=== PATIENT | male | born 1950 | race Caucasian/White ===

== ENCOUNTER → 2024-02-21 07:11 | Outpatient (REF) | payer OTHER, SELFPAY | LOC: RSP 07:11 | PROVIDERS: ATTENDING PHYSICIAN Internal Medicine | DX: R06.02 Shortness of breath (principal) | CPT/HCPCS: 94727; 94729; 88738; 94060 ==

== ENCOUNTER 2024-02-26 15:11 | Inpatient (IN) | payer OTHER, SELFPAY ==
[2024-02-26 11:15] VITALS: BP 136/83
[2024-02-26 11:27] VITALS: BP 137/106
--- NOTE | 2024-02-26 11:42 | ED.GENMED ---
History of Present Illness
<Paty Pryor PA-C - Last Filed: 02/26/24 16:54>
General
Chief Complaint: Heart Rate Problem
Source: patient
Exam Limitations: none
Time Seen by Provider: 02/26/24 11:24
Nursing documentation reviewed up to this point in time: agreed with
Travel History
Have you had any contact with someone who has COVID-19?: No
Do you have any symptoms of coronavirus? Fever > 100 degrees, chills, cough, shortness of breath, sore throat, loss of taste or smell, muscle aches, or headache?: No
History of Present Illness
History of Present Illness:
Patient is a 73-year-old male with history of atrial fibrillation on Eliquis, hypertension, hyperlipidemia presenting to the emergency department for evaluation of shortness of breath and rapid heart rate. Patient states that he checked his vitals
on a monitoring analyst yesterday and was found to be in atrial fibrillation with a rapid heart rate. 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 At
this time�patient reporting shortness of breath with exertion and some mild epigastric abdominal discomfort. He denies any chest pain or tearing back pain. He denies any pain or swelling in bilateral lower legs.
Patient was seen in our emergency department in 05/13 and found to be in atrial fibrillation RVR. He was cardioverted and returned to normal sinus rhythm.
Patient currently takes metoprolol 25 Mg twice daily, Eliquis 2.5 Mg twice daily. He does take furosemide 20 mg once daily.
Patient states that he is generally pretty compliant with medications but does fear that he missed 1 dose of his Eliquis about 2 days ago. Patient follows Dr. Humphrey as his primary group exercise class instructor.
Past History
<Paty Pryor PA-C - Last Filed: 02/26/24 16:54>
Past History
ED Past Medical History: HTN, Hypercholesterolemia and Other (Factor XI deficiency, right knee prosthesis infection, meningioma)
ED Past Surgical History: Brain, Orthopedic and Urological
Social History
Tobacco: Non-smoker
Alcohol: None
Drug: None
Personal:
Living: with family
Employment: Employed
Family History
Family History: Diabetes
Phy Exam
<Paty Pryor PA-C - Last Filed: 02/26/24 16:54>
Physical Exam
Physical Exam:
Vitals: Tachycardic, otherwise vital signs stable; afebrile
General: Patient is well appearing, no acute distress
Skin: Warm and dry, no rashes or lesions
Head: Normocephalic, atraumatic
Eyes: Sclera nonicteric. EOMs intact. No nystagmus.
Cardiac: Tachycardic, irregular rhythm, no murmurs.
Pulm: Increased respiratory effort, breath sounds slightly diminished at bases, no wheezing, rales, rhonchi.
Abdomen: No abdominal tenderness to palpation, no rebound tenderness or guarding, no CVA tenderness.
Extremities: No evidence of cyanosis or edema, DP pulses palpable bilaterally
Neuro: AAOx3. CN II-XII intact. No focal neurologic deficits.
Psychiatric: Normal affect.
Course
<Paty Pryor PA-C - Last Filed: 02/26/24 16:54>
Orders/Labs/Results
Orders:
Orders
02/26/24 Lunch
Sodium, 2 Gram
At Your Request: Full Participation
Does patient need a safe tray?: No
02/26/24 11:07
ECG [Electrocardiogram (*1)] Urgent
Reason for Study: Chest Pain
EKG- Treatment ONCE
02/26/24 11:47
Cardiac Monitoring- Treatment ONCE
IV Insert/Care/Rem.- Treatment PRN
02/26/24 11:49
Complete Blood Count/With Diff Urgent
Comprehensive Metabolic Panel Urgent
NT-proBNP Urgent
Comment: ADDED
Troponin I Urgent
02/26/24 11:54
Add On- LAB Urgent
Tests Added?: pro-BNP
Diltiazem HCl [Cardizem] 20 mg IV NOW STA
02/26/24 11:57
Diltiazem HCl [Cardizem] 25 mg .ROUTE .STK-MED ONE
02/26/24 12:02
PTT Urgent
Prothrombin Time Urgent
02/26/24 13:55
Diltiazem 125 mg/125 ml Nss [Cardizem] 125 mg in 125 ml IV NOW
Initial dose in mg/hr, then titrate:: 5
Titrate to keep:: Heart rate 80-100 bpm
Titrate by mg/hr:: 5 mg/hr
Frequency of titrations (minutes):: 15
Maximum dose in mg/hr:: 15
Diltiazem HCl [Cardizem] 20 mg IV NOW STA
02/26/24 14:41
CXR2 [CR Chest - 2 Views ] Urgent
Comment:
Reason For Exam: SOB/CHF
02/26/24 14:46
Admit/Transfer Patient As Directed
Co-Sign Provider:
Level of Care: Inpatient admission
Assign to:: IVU
Physician / Group: Herminia
Diagnosis: AFIB with RVR
Reason for Hospitalization: Above
Expected length of stay greater than two midnights?: Yes
ELOS- Estimated Length of Stay in days: 2
I certify the patient meets the requirements for IP care: Yes
02/26/24 14:48
Code Status As Directed
Resuscitation Status: Full Code
02/26/24 14:56
Ibuprofen [Motrin] 400 mg PO NOW STA
02/26/24 14:58
Ibuprofen [Motrin] 400 mg .ROUTE .STK-MED ONE
02/26/24 14:59
Ibuprofen [Motrin] 400 mg PO NOW STA
Abnormal Lab Results
02/26/24 02/26/24
11:49 12:02
RBC 4.46 L 10^6/uL
(4.70-6.10)
Hct 38.2 L %
(39.0-52.0)
Absolute Lymphs (auto) 1.0 L 10^3/uL
(1.2-3.4)
Absolute Monos (auto) 0.7 H 10^3/uL
(0.1-0.6)
Lymphocytes % 14.5 L %
(20.5-51.1)
Monocytes % 10.1 H %
(1.7-9.3)
PT 15.0 H Sec
(11.4-14.6)
APTT 66.9 H Sec
(23.4-35.0)
BUN 35 H mg/dl
(9-20)
Creatinine 1.4 H mg/dL
(0.7-1.3)
Glucose 138 H mg/dl
(70-99)
Alkaline Phosphatase 140 H U/L
(38-126)
Troponin I 0.120 H* ng/ml
02/26/24 11:49
02/26/24 11:49
Vital Signs
Initial and Last Documented VS:
Initial Vital Signs
Temp Pulse Resp BP Pulse Ox
98.1 F 155 23 136/83 97
02/26/24 11:15 02/26/24 11:15 02/26/24 11:15 02/26/24 11:15 02/26/24 11:15
Last Documented Vital Signs
Temp Pulse Resp BP Pulse Ox
98.1 F 122 20 112/81 96
02/26/24 11:15 02/26/24 16:30 02/26/24 16:30 02/26/24 14:03 02/26/24 13:00
<Pedro Levine, DO - Last Filed: 02/26/24 12:17>
Orders/Labs/Results
Orders:
Orders
02/26/24 Lunch
Sodium, 2 Gram
At Your Request: Full Participation
Does patient need a safe tray?: No
02/26/24 11:07
ECG [Electrocardiogram (*1)] Urgent
Reason for Study: Chest Pain
EKG- Treatment ONCE
02/26/24 11:47
Cardiac Monitoring- Treatment ONCE
IV Insert/Care/Rem.- Treatment PRN
02/26/24 11:49
Complete Blood Count/With Diff Urgent
Comprehensive Metabolic Panel Urgent
NT-proBNP Urgent
Comment: ADDED
Troponin I Urgent
02/26/24 11:54
Add On- LAB Urgent
Tests Added?: pro-BNP
Diltiazem HCl [Cardizem] 20 mg IV NOW STA
02/26/24 11:57
Diltiazem HCl [Cardizem] 25 mg .ROUTE .STK-MED ONE
02/26/24 12:02
PTT Urgent
Prothrombin Time Urgent
02/26/24 13:55
Diltiazem 125 mg/125 ml Nss [Cardizem] 125 mg in 125 ml IV NOW
Initial dose in mg/hr, then titrate:: 5
Titrate to keep:: Heart rate 80-100 bpm
Titrate by mg/hr:: 5 mg/hr
Frequency of titrations (minutes):: 15
Maximum dose in mg/hr:: 15
Diltiazem HCl [Cardizem] 20 mg IV NOW STA
02/26/24 14:41
CXR2 [CR Chest - 2 Views ] Urgent
Comment:
Reason For Exam: SOB/CHF
02/26/24 14:46
Admit/Transfer Patient As Directed
Co-Sign Provider:
Level of Care: Inpatient admission
Assign to:: IVU
Physician / Group: Herminia
Diagnosis: AFIB with RVR
Reason for Hospitalization: Above
Expected length of stay greater than two midnights?: Yes
ELOS- Estimated Length of Stay in days: 2
I certify the patient meets the requirements for IP care: Yes
02/26/24 14:48
Code Status As Directed
Resuscitation Status: Full Code
02/26/24 14:56
Ibuprofen [Motrin] 400 mg PO NOW STA
02/26/24 14:58
Ibuprofen [Motrin] 400 mg .ROUTE .STK-MED ONE
02/26/24 14:59
Ibuprofen [Motrin] 400 mg PO NOW STA
Abnormal Lab Results
02/26/24 02/26/24
11:49 12:02
RBC 4.46 L 10^6/uL
(4.70-6.10)
Hct 38.2 L %
(39.0-52.0)
Absolute Lymphs (auto) 1.0 L 10^3/uL
(1.2-3.4)
Absolute Monos (auto) 0.7 H 10^3/uL
(0.1-0.6)
Lymphocytes % 14.5 L %
(20.5-51.1)
Monocytes % 10.1 H %
(1.7-9.3)
PT 15.0 H Sec
(11.4-14.6)
APTT 66.9 H Sec
(23.4-35.0)
BUN 35 H mg/dl
(9-20)
Creatinine 1.4 H mg/dL
(0.7-1.3)
Glucose 138 H mg/dl
(70-99)
Alkaline Phosphatase 140 H U/L
(38-126)
Troponin I 0.120 H* ng/ml
02/26/24 11:49
02/26/24 11:49
Vital Signs
Initial and Last Documented VS:
Initial Vital Signs
Temp Pulse Resp BP Pulse Ox
98.1 F 155 23 136/83 97
02/26/24 11:15 02/26/24 11:15 02/26/24 11:15 02/26/24 11:15 02/26/24 11:15
Last Documented Vital Signs
Temp Pulse Resp BP Pulse Ox
98.1 F 122 20 112/81 96
02/26/24 11:15 02/26/24 16:30 02/26/24 16:30 02/26/24 14:03 02/26/24 13:00
<Paty Pryor PA-C - Last Filed: 02/26/24 16:54>
MDM/Problems Addressed
Differential Diagnosis Includes:
Not limited to: Atrial fibrillation, CHF exacerbation, anemia, doubt ACS
MDM/Problems Addressed:
73-year-old male with history atrial fibrillation mild presenting to the emergency department for shortness of breath and associated tachycardia. Patient found to be in atrial fibrillation w/ RVR in triage. Heart rate in 150s, otherwise vital
signs are stable. Exam as above. Tachycardia, irregular heart rate. Lungs clear. No clinical evidence of fluid overload on exam. Patient reports possible missed dose of Eliquis 2 days ago. Discussed with cardiology�not a cardioversion
candidate at this time. Will check basic labs. Will give bolus of Cardizem in an attempt to rate control. Will monitor closely and reassess.
Labs noted. Mild renal insufficiency likely due to dehydration. Troponin was elevated to 0.120. proBNP elevated to 9500. Suspect that both troponin and proBNP elevation is due to tachycardia for the past 24 hours. Cardizem bolus did briefly
reduce rate and improve symptomatic shortness of breath. Heart rate did return into 150s. Despite symptomatic improvement at given persistent tachycardia and elevated Troponin/BNP�will admit to hospitalist for further management/evaluation.
Cardiology consulted�possible MARBELLA cardioversion tomorrow. Will give second bolus Cardizem and start Cardizem drip. Discussed with hospitalist. Cardiology aware
Chronic conditions affecting care:
Atrial fibrillation, hypertension, high anemia, factor XI deficiency
Acute Exacerbation and/or Progression of Chronic Illness:
Atrial fibrillation with rapid ventricular response
<Paty Pryor PA-C - Last Filed: 02/26/24 16:54>
*Pulse Oximetry
Patient hypoxic: no
*EKG
Interpreted by ED Provider?: Yes
EKG Intrepretation Date: 02/26/24
Interpretation: abnormal
Comparison EKG: changes noted
Heart Rate: 163
Rate: tachycardiac
Rhythm: a-fib
Saline: normal axis
Ischemia: no ischemia
*Tumbling And Rolling Supervisor Interpretation
Rate: tachycardiac
Interpretation: abnormal
Heart Rate: 144
Rhythm: a-fib
*Critical Care Note
Total Time (30-74mins, 75-104mins- exclusive of procedures): Not Applicable
Data Reviewed
Review of Other/Old Records Reveals: Labs, Records and Testing
Source: patient and previous hospital records
<Paty Pryor PA-C - Last Filed: 02/26/24 16:54>
Patient Management
Discussion with other providers: Hospitalist and Typist (Cardiology)
Escalation/DeEscalation of care consider admission/obs:
Persistent tachycardia, not cardioversion candidate�will admit for further management and cardiology consult
ED Attending Note
<Paty Pryor PA-C - Last Filed: 02/26/24 16:54>
-
Portions of this chart may have been created with voice recognition software.� Occasional wrong word or��sound alike� substitutions may have occurred due to the inherent limitations of voice recognition software.
<Pedro Levine DO - Last Filed: 02/26/24 12:17>
ED Attending Note
Patient seen and examined by attending physician: Yes
I performed the substantive portion of visit, reviewed & personally made and approve the management plan that is documented in note by myself or YUNIOR.: Yes
ED Attending Note:
I have seen and evaluated the patient with a [id number] encounter. I have spoken to the advance practicer provider and involved in the medical history, the physical exam, medical decision making.
Evaluation and management service: agree unless noted differently below.
Results interpretation: agree unless noted differently below.
Focused HPI: 73-year-old male presenting with palpitations. Patient believes he is back in A-fib
Physical exam: Tachycardic and irregular. Lungs clear. Patient otherwise comfortable
Medical Decision Making: Patient feeling better after IV Cardizem. He is now rate controlled. Case discussed with cardiology. Patient has been cardioverted in the past but patient is concerned he may missed a dose or 2 of Eliquis recently.
Because of this, he is no longer a bedside cardioversion candidate. Patient is feeling better rate controlled and will consider discharge home if he remains rate controlled. If patient goes back into A-fib with RVR, will admit
Discharge Plan
Departure
Patient Disposition: Admit
Date of Disposition: 02/26/24
Time of Disposition: 13:51
Presentation/result/management discussed w/ accepting MD/DO: Hospitalist
Discharge Problem:
Atrial fibrillation with rapid ventricular response
Interventions
Interventions:
*Risk Screen - Suicide Last Done: 02/26/24 11:15
*General Assessment Last Done: 02/26/24 11:15
*Neglect/Abuse Screening Last Done: 02/26/24 11:15
ED- Fall Risk Assessment Last Done: 02/26/24 15:06
*ED COVID-19 Vaccine History Last Done: 02/26/24 15:06
*Nursing Disposition Last Done: 02/26/24 15:06
ED- Cardiac Assessment Last Done: 02/26/24 11:28
ED- Pulmonary Assessment Last Done: 02/26/24 11:29
[2024-02-26 11:55] LABS: % Basophils 0.6 % (0-2); % Eosinophils 5.1 % (0-6); % Immature Granulocytes 0.4 % (0-0.5); % Lymphocytes 14.5 % (20.5-51.1); % Monocytes 10.1 % (1.7-9.3); % Neutrophils 69.3 % (42.2-75.2); Absolute Eosinophils 0.4 10^3/uL (0-0.7); Absolute Monocytes 0.7 10^3/uL (0.1-0.6); Absolute Neutrophils 4.7 10^3/uL (1.4-6.5); Hematocrit 38.2 % (39.0-52.0); Hemoglobin 13.2 g/dL (13.0-18.0); Mean Corp Hgb Conc. 34.6 g/dL (33.0-37.0); Mean Corpuscular Hgb 29.6 pg (27.0-31.0); Mean Corpuscular Volume 85.7 fL (80.0-94.0); Mean Platelet Volume 9.9 fL (7.4-10.4); Nucleated Red Blood Cells % 0 % (-); Platelet Count 278 10^3/uL (130-400); Red Blood Cell Count 4.46 10^6/uL (4.70-6.10); Red Cell Dist. Width 13.3 % (11.5-14.5); White Blood Cell Count 6.8 10^3/uL (4.8-10.8)
[2024-02-26] MEDS: CARDIZEM 20 MG IV ×2 (11:58→14:00)
[2024-02-26 12:23] LABS: ALT (SGPT) 35 U/L (0-50); AST (SGOT) 50 U/L (17-59); Albumin 4.3 g/dl (3.5-5.0); Alkaline Phosphatase 140 U/L (38-126); Blood Urea Nitrogen 35 mg/dl (9-20); Carbon Dioxide 25 mmol/L (22-30); Chloride 102 mmol/L (98-107); Glucose 138 mg/dl (70-99); Potassium 4.6 mmol/L (3.5-5.1); Sodium 137 mmol/L (135-145); Total Bilirubin 0.7 mg/dl (0.2-1.3); Total Protein 7.3 g/dl (6.3-8.2); eGFR 52.41
[2024-02-26 12:27] LABS: APTT 66.9 Sec (23.4-35.0)
[2024-02-26 12:41] LABS: NT-proBNP 9500 pg/ml
[2024-02-26] MEDS: CARDIZEM 125 IV (14:00)
[2024-02-26 14:03] VITALS: BP 112/81
--- NOTE | 2024-02-26 14:53 | HPS.HSE ---
Family Physician
-
Family Physician: Jasbir Narvaez
Chief Complaint
-
Shortness of breath and palpitations
History of Present Illness
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 Patient states that he feels short of
breath with palpitations for over the last 24 hours. He states that he has been compliant to his home medication regimen including metoprolol, Lasix, Eliquis. He could recall possibility of missing 1 dose of Eliquis they go. While emergency room
patient was found to be in atrial fibrillation with rapid trickle response initiated on IV Cardizem with bolus following drip. He remains normotensive with stable oxygen saturations. He denies any chest pain, cough, fever.
Medical History
Past Medical History
Past Medical History: Reports Arrhythmia (A-fib with history of cardioversion) and CHF
Past Surgical History: Reports Orthopedic
Social History
Tobacco: Non-smoker
Alcohol: None
Drug: None
Personal:
Living: With Family
Family History
Family History: Not pertinent
Allergies / Home Medications
Allergies reflects when Allergies were last updated in [employer].
Home Medications with original date entered in [employer]
Allergy/Medication List:
Allergies
Allergy/AdvReac Type Severity Reaction Status Date / Time
ertapenem sodium Allergy seizure [facility] 02/26/24 11:15
[facility]
seasonal allergies Allergy sneezing Uncoded 02/26/24 11:15
Home Medications
cefadroxil 500 mg capsule 500 mg PO DAILY channel turner-Infection 04/11/16
saw palmetto 160 mg capsule 585 mg PO DAILY Supplement 04/11/16
omeprazole magnesium 20 mg tablet,delayed release (Prilosec OTC) 20 mg PO DAILY Gastrointestinal issue 10/13/21
turmeric 400 mg capsule 538 mg PO DAILY Supplement 10/13/21
apixaban 2.5 mg tablet (Eliquis) 2.5 mg PO BID #60 tabs 10/26/21
furosemide 40 mg tablet 40 mg PO DAILY #30 tabs 10/26/21
ibuprofen 200 mg tablet (Advil) 400 mg PO DAILY PRN orthopedic pain 11/15/21
metoprolol succinate 25 mg tablet,extended release 24 hr 25 mg PO BID 11/15/21
red yeast rice 600 mg tablet 600 mg PO QPM 02/26/24
Review of Systems
-
A 12 point ROS was completed and negative except as noted: Yes
Cardiac: Reports See HPI
Physical Exam
Vital Signs
Vital Signs
Temp Pulse Resp BP Pulse Ox
98.1 F 91 21 112/81 96
02/26/24 11:15 02/26/24 14:45 02/26/24 14:45 02/26/24 14:03 02/26/24 13:00
Physical Exam
General: Well Developed, Well Nourished and No Apparent Distress
HEENT: NormoCephalic, Moist mucous membranes and Atraumatic
Respiratory: Clear
Cardiac: S1/S2, Irregular Rhythm and Tachycardia; No Murmur or Rub
GI: Soft, Non Tender, Non Distended and Normal Bowel Sounds; No Organomegaly
Rectal: Deferred by Provider
Musculoskeletal: No Clubbing, No Cyanosis and No Edema
Skin: No Rash
Neuro: Awake, Alert, Oriented, AO x 3 and Nonfocal/grossly intact
Laboratory Results
-
02/26/24 11:49
02/26/24 11:49
Laboratory Results
PT 15.0 Sec (11.4-14.6) H 02/26/24 12:02
INR 1.20 02/26/24 12:02
APTT 66.9 Sec (23.4-35.0) H 02/26/24 12:02
Total Bilirubin 0.7 mg/dl (0.2-1.3) 02/26/24 11:49
AST 50 U/L (17-59) 02/26/24 11:49
ALT 35 U/L (0-50) 02/26/24 11:49
Alkaline Phosphatase 140 U/L (38-126) H 02/26/24 11:49
Troponin I 0.120 ng/ml H* 02/26/24 11:49
Data Reviewed
-
Lab Data: Labs Reviewed by me
Impression/Plan
-
IMPRESSION:
Atrial fibrillation with rapid ventricular response.
Suspected acute diastolic CHF in the settings of RVR
Non-VT troponin elevation
KENDELL.
Conditions prior to admission:
Persistent atrial fibrillation with history of cardioversion
Anticoagulation with Eliquis.
Nonischemic cardiomyopathy with recovered EF 45-50%
Valvular dysfunction with mild to moderate /AR/mild MR.
Factor XI deficiency
History of brain meningioma resection 2000
Essential hypertension
Dyslipidemia
GERD
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
History of nephrolithiasis and ureteral stenting
PLAN:
Persistent A-fib with RVR.
Hemodynamically stable.
Initiated IV Cardizem drip
Continue preadmission metoprolol
May require MARBELLA cardioversion
Continue anticoagulation with Eliquis. Patient with history of factor XI deficiency on reduced dose of Eliquis at 2.5 mg twice daily as per hematology recommendation.
Nonischemic cardiomyopathy with recovered EF
Noted elevated pro CHF BNP
Not overly volume overloaded on exam with stable oxygenation
Check chest x-ray
Consider additional dose of IV Lasix while continuing preadmission oral Lasix at 40 mg daily.
Daily weights
Non-VT troponin elevation, suspect in the settings of RVR. Monitor trend.
KENDELL.
Creatinine 1.4 with normal baseline
Will follow BMP while on current dose of diuretics.
Avoid nephrotoxins. Stop ibuprofen
GERD.
Continue PPI.
Chronic antibiotic suppression for right TKA infection
[2024-02-26] MEDS: MOTRIN 400 MG PO (14:59)
--- NOTE | 2024-02-26 16:26 | CON.CAR ---
Consultation
Consultation Request
Date/Time Consultation Requested: 02/26/2024 1430
Date/Time Consultation Performed: 02/26/2024 1445
Requesting Provider: Jensen Hope MD
Performing Provider: Vargas Mejia DO
Reason for Consultation: AF RVR
Medical History
-
Chief Complaint: AF, SOB
History of Present Illness:
It is a pleasure to see Mr. Daniels in consultation today. As you are aware, patient is a very pleasant 73-year-old male with a past medical history significant for factor XI deficiency, brain meningioma status postresection, seizure disorder,
kidney stones, hypertension, hyperlipidemia, paroxysmal atrial fibrillation (diagnosed 09/2021), mild aortic stenosis, heart failure with preserved ejection fraction who presents following a call to the office due to AF RVR. Initial diagnosis of
atrial fibrillation occurred following ureteroscopy and stone extraction September 2021 and at the time patient was started on metoprolol and aspirin due to his factor XI deficiency. Patient subsequently readmitted in October 2021 with elevated BNP
and shortness of breath with chest x-ray showing pulmonary edema. At that time, patient was started on Eliquis 2.5 mg twice daily at recommendation from hematology for stroke risk reduction in the setting of A-fib. He underwent Lexiscan nuclear
stress testing which demonstrated no evidence of ischemia. At the end of October, he underwent MARBELLA cardioversion with yazidism of sinus rhythm. Patient had remained out of atrial fibrillation until April 2023 and was noted to be in AF on his
[employer] mobile. Patient increase his metoprolol and underwent cardioversion in the emergency department. Since that time, he reports brief episodes of paroxysmal A-fib but nothing that sustains. Overall he reports adherence to his oral
anticoagulation however in the last couple weeks he cannot recall if he missed 1 or 2 doses of his oral anticoagulation. He notes on Sunday experienced episode of shortness of breath and palpitations as well as poor sleep which he attributes to his
atrial fibrillation symptoms. In evaluation by his [employer] mobile he noted that his heart rate was elevated greater than 150 bpm. He reported that he was hoping to allow the symptoms to pass on their own as they typically do however they did not
change therefore he called the office recommended that he present to the emergency department for evaluation. In discussion with patient, he is currently on a Cardizem drip with improved rates 90 to 110 bpm. He reports that in addition to the
palpitations, shortness of breath, and fatigue he noted abdominal discomfort as his typical symptom for atrial fibrillation. He notes that since his rates are controlled, he no longer feels any of the symptoms. Patient currently denies any chest
pain, shortness of breath, lightheadedness, dizziness, near-syncope, syncope, PND, orthopnea, edema, fever, chills, nausea, vomiting, abdominal pain, or weakness. Patient reports parents all medications aside from most recently mentioned Eliquis as
he notes he possibly missed 1 or 2 doses over the past few weeks. Patient non-smoker, no alcohol, no illicits. Patient reports that he is active doing weight lifting and aerobic exercise near daily.
Past Medical History
Past Medical History: Other (See HPI)
Past Surgical History: Other (See HPI)
Social History
Tobacco: Non-Smoker
Alcohol: None
Drug: None
Personal:
Living: With Family
Employment: Retired
Family History
Family History: Reviewed & Not Pertinent
Allergies / Home Medications
Allergy/AdvReac Type Severity Reaction Status Date / Time
ertapenem sodium Allergy seizure Verified 02/26/24 11:15
[From Invanz]
seasonal allergies Allergy sneezing Uncoded 02/26/24 11:15
�Medication �Instructions �Recorded �Confirmed �Type
cefadroxil 500 mg capsule 500 mg PO DAILY manager terminal-Infection 04/11/16 02/26/24 History
saw palmetto 160 mg capsule 585 mg PO DAILY Supplement 04/11/16 02/26/24 History
omeprazole magnesium 20 mg 20 mg PO DAILY Gastrointestinal 10/13/21 02/26/24 History
tablet,delayed release (Prilosec issue
OTC)
turmeric 400 mg capsule 538 mg PO DAILY Supplement 10/13/21 02/26/24 History
ibuprofen 200 mg tablet (Advil) 400 mg PO DAILY PRN orthopedic pain 11/15/21 02/26/24 History
metoprolol succinate 25 mg 25 mg PO BID Blood Pressure 11/15/21 02/26/24 History
tablet,extended release 24 hr
apixaban 2.5 mg tablet (Eliquis) 2.5 mg PO BID Blood Clot 02/26/24 02/26/24 History
Prevention/Tx
furosemide 40 mg tablet 40 mg PO DAILY Fluid 02/26/24 02/26/24 History
Retention/Swelling
red yeast rice 600 mg tablet 600 mg PO QPM Supplement 02/26/24 02/26/24 History
Review of Systems
-
History Source: Patient and Family
All other systems: Negative unless noted (See HPI)
Physical Exam
Vital Signs
Temp Pulse Resp BP Pulse Ox
98.1 F 87 25 112/81 96
02/26/24 11:15 02/26/24 15:30 02/26/24 15:30 02/26/24 14:03 02/26/24 13:00
Lab Results
02/26/24 11:49
02/26/24 11:49
Troponin I 0.120 ng/ml H* 02/26/24 11:49
Aab-N-Oxxmazcmleg Pept 9500 pg/ml 02/26/24 11:49
Physical Exam
General: Well Developed, Well Nourished, No Apparent Distress and Comfortable
HEENT: Normocephalic, Anicteric and Moist Mucous Membranes
Respiratory: Clear, Non Labored Respirations and Other (No wheeze, rhonchi, rales)
Cardiac: S1/S2, Irregular Rhythm, Murmur (2/6 CAM) and JVD (Unable to appreciate JVD)
Breast: Deferred by me
GI: Soft, Non Tender, Non Distended and Normal Bowel Sounds
Rectal: Deferred by Provider
Musculoskeletal: No Clubbing, No Cyanosis and No Edema
Skin: Warm and Dry
Neuro: AO x 3 and Nonfocal/Grossly Intact
Psych: Calm
Impression / Plan
-
Primary debridging machine operator: Gerardo Davis MD
PCP: Jasbir Narvaez MD
Rn Mds Coordinator: Abundio Prieto DO
.
AF RVR, paroxysmal, symptomatic, improved
� [id number]: 4 (age, hypertension, heart failure). On Eliquis 2.5 mg twice daily for stroke risk reduction, as recommendation by hematology
� On metoprolol succinate 25 mg twice daily as outpatient, currently rate controlled with diltiazem gtt
Acute on chronic heart failure with preserved ejection fraction
� BNP 9500
� CXR pending
� History of nonischemic cardiomyopathy with EF 45% improved to 55%
� No overt overload on examination
Nonischemic myocardial injury
� Lexiscan MPI 2021 negative for ischemia
� TTE 2022 EF 55%
Mixed dyslipidemia
Mild aortic stenosis
Mild to moderate AI
Hypertension
Factor XI deficiency, followed by hematology/oncology
Seizure disorder
History of brain meningioma status post resection 2000
History of nephrolithiasis
Recommendations:
� N.p.o. after midnight pending MARBELLA/DCCV for yazidism of sinus rhythm
� 40 mg IV Lasix x 1, repeat BMP in a.m., monitor renal function, electrolytes, intake, outputs
� Recommend strongly against use of ibuprofen/NSAIDs
� Continue oral anticoagulation for stroke risk reduction; recommend reaching out to hematology oncology for possible adjustment of oral anticoagulation
Data Reviewed
-
EKG: Tracing Personally Visualized and interpreted
Medical Tests (Nuc Med, Echo etc): Report Reviewed by me
Labs: Labs Reviewed by me
Old Records: Reviewed
[2024-02-26 16:30] VITALS: BP 143/84
[2024-02-26 16:55] VITALS: BMI 32.6
[2024-02-26] MEDS: TOPROL XL 25 MG PO (19:10)
[2024-02-26] MEDS: KEFLEX 250 MG PO (19:11)
[2024-02-26] MEDS: ELIQUIS 2.5 MG PO (19:11)
[2024-02-26] MEDS: LASIX 40 MG IV (19:42)
[2024-02-26 22:10] VITALS: BP 165/101
[2024-02-27] VITALS (7 sets, daily range): BP systolic 103–172; BP diastolic 75–123; BMI 32.6; BMI 31.3
[2024-02-27] MEDS: TOPROL XL 25 MG PO (08:33)
[2024-02-27] MEDS: PROTONIX 40 MG PO (08:36)
[2024-02-27] MEDS: ELIQUIS 2.5 MG PO ×2 (08:36→09:50)
[2024-02-27] MEDS: KEFLEX 250 MG PO (08:48)
[2024-02-27 09:29] LABS: Blood Urea Nitrogen 40 mg/dl (9-20); Calcium 9.8 mg/dl (8.4-10.2); Carbon Dioxide 27 mmol/L (22-30); Chloride 102 mmol/L (98-107); Estimated Creatinine Clearance 56 ml/min; Glucose 131 mg/dl (70-99); Potassium 4.4 mmol/L (3.5-5.1); Sodium 137 mmol/L (135-145); eGFR 52.41
[2024-02-27 09:39] LABS: Troponin I 0.075 ng/ml
[2024-02-27] MEDS: CARDIZEM 125 IV (09:40)
--- NOTE | 2024-02-27 11:26 | ITS.CL.CARDI ---
Validation Intern - Cardioversion
Cardioversion
Procedure Report:
Date of Procedure:
Procedure: Cardioversion
Indication: Symptomatic atrial fibrillation
Performing Physician: Mark Cavazos MD
Technique: The patient was brought to the holding area. Signed informed consent was obtained. A time out was called and performed. The patient was anesthetized by the anesthesia service. Anticoagulation status was reviewed and appropriate. R2 pads
were placed anteriorly and posteriorly. After MARBELLA revealed no clear thrombus, a 200 J synchronized biphasic shock restored normal sinus rhythm without significant bradycardia. There were no complications.
Conclusion: Uncomplicated cardioversion from atrial fibrillation to sinus rhythm.
Recommendation: Routine post cardioversion care. Continue terminal make up operator anticoagulation.
--- NOTE | 2024-02-27 11:58 | W.PN.CARDCBS ---
Today's Communication / Plan
-
MARBELLA cardioversion
Increase Eliquis to 5 mg p.o. twice daily for cardioprotective stroke prevention as patient has never had bleeding events despite diagnosis of factor XI deficiency
No signs or symptoms of CHF and will discharge on normal outpatient dose of Lasix 40 mg daily and check renal profile in 1 week
Follow-up in office to discuss ablation with high risk of recurrent A-fib
Impression / Plan
-
Primary ornamental metalwork designer: Gerardo Davis MD
PCP: Jasbir Narvaez MD
Administrative Court Justice: Abundio Prieto DO
Assessment:
AF RVR, paroxysmal
Acute diastolic CHF
Nonischemic myocardial injury, peak troponin 1.2
Mixed dyslipidemia
Mild aortic stenosis
Mild to moderate AI
Hypertension
Factor XI deficiency, followed by hematology/oncology
Seizure disorder
History of brain meningioma status post resection 2000
History of nephrolithiasis
� Lexiscan MPI 2021 negative for ischemia
� TTE 2022 EF 55%
Plan:
He remains in rate controlled atrial fibrillation.
Discussed with hematology and plan is to increase Eliquis to 5 mg p.o. twice daily given increased risk of stroke status post cardioversion
Patient declines ever having had bleeding events in the past
[id number]: 4 (age, hypertension, heart failure).
Plan is for MARBELLA/cardioversion
He will be seen by EP as an outpatient discuss ablation as he is high risk for recurrent atrial fibrillation
There may have been a mild element of volume overload
We will continue outpatient oral Lasix 40 mg dosing and check BMP in 1 week
Discussed with primary service and patient in detail
Recommendations:
� N.p.o. after midnight pending MARBELLA/DCCV for episcopal of sinus rhythm
� 40 mg IV Lasix x 1, repeat BMP in a.m., monitor renal function, electrolytes, intake, outputs
� Recommend strongly against use of ibuprofen/NSAIDs
� Continue oral anticoagulation for stroke risk reduction; recommend reaching out to hematology oncology for possible adjustment of oral anticoagulation
Progress Note - Seed Potato Arranger
Subjective
Date of Service: February 27, 2024
No complaints. Remains in atrial fibrillation.
Objective
Labs:
02/26/24 11:49
02/27/24 09:04
Labs
Hgb 13.2 g/dL (13.0-18.0) 02/26/24 11:49
Hct 38.2 % (39.0-52.0) L 02/26/24 11:49
Plt Count 278 10^3/uL (130-400) 02/26/24 11:49
PT 15.0 Sec (11.4-14.6) H 02/26/24 12:02
INR 1.20 02/26/24 12:02
APTT 66.9 Sec (23.4-35.0) H 02/26/24 12:02
Sodium 137 mmol/L (135-145) 02/27/24 09:04
Potassium 4.4 mmol/L (3.5-5.1) 02/27/24 09:04
BUN 40 mg/dl (9-20) H 02/27/24 09:04
Creatinine 1.4 mg/dL (0.7-1.3) H 02/27/24 09:04
Glucose 131 mg/dl (70-99) H 02/27/24 09:04
Troponins
02/26/24 02/27/24
11:49 09:05
Troponin I 0.120 H* 0.075 H*
Vital Signs and I&O:
Vital Signs
Temp Pulse Resp BP Pulse Ox
98.1 F 109 16 131/95 96
02/26/24 11:15 02/27/24 08:33 02/27/24 07:45 02/27/24 08:33 02/26/24 13:00
Vital Signs
Temp Pulse Resp BP Pulse Ox
98.1 F 109 16 131/95 96
05/07/24 11:15 02/27/24 08:33 02/27/24 07:45 02/27/24 08:33 02/26/24 13:00
Physical Exam
Physical Exam
General: Well developed, well nourished in NAD.
Neck: Supple, no JVD, HJR, carotids +2 B/L, no bruits bilaterally.
Heart: Non displaced PMI, irregular, no murmurs, No S3, S4, no rubs.
Lungs: Scattered rhonchi
Extremities: No clubbing, cyanosis or edema bilaterally.
Neuro: Grossly nonfocal, awake, alert and oriented x3.
--- NOTE | 2024-02-27 12:40 | PTCARENOTE ---
02/26- Patient transferred and oriented to unit without issue. AAOX3; Skin=warm/pink/dry/intact; Telemetry #25 currently NSR. Patient is hungry and wants to eat but aside from that, denies any current needs.
--- NOTE | 2024-02-27 13:35 | W.DS.TRANS ---
DC Summary - Senior Mechanical Project Manager
-
Discharge Instructions:
Sleep Apnea Risk High
Discharge Diagnosis/Procedures Atrial fibrillation with RVR
Diet 2 Gram Sodium
Blood Work -Check non-fasting blood work in 1 week to re-
evaluate kidney function and electrolytes.
Specialty Instructions Weigh Daily
Instructions:
Stand-Alone Forms:
Changes to Home Medications: Yes
Discharge Medications:
DC Medications w/original date entered in [facility]
cefadroxil 500 mg capsule 500 mg PO DAILY terminal make up operator-Infection 04/11/16
saw palmetto 160 mg capsule 585 mg PO DAILY Supplement 04/11/16
omeprazole magnesium 20 mg tablet,delayed release (Prilosec OTC) 20 mg PO DAILY Gastrointestinal issue 10/13/21
turmeric 400 mg capsule 538 mg PO DAILY Supplement 10/13/21
metoprolol succinate 25 mg tablet,extended release 24 hr 25 mg PO BID Blood Pressure 11/15/21
furosemide 40 mg tablet 40 mg PO DAILY Fluid Retention/Swelling 02/26/24
red yeast rice 600 mg tablet 600 mg PO QPM Supplement 02/26/24
apixaban 5 mg tablet (Eliquis) 5 mg PO BID #60 tabs 02/27/24
Home Medication Changes
Eliquis dose increased
Pending Results: No
== END 2024-02-27 14:10 | disposition home or self-care (01) | DRG 308 ==
LOC: 4 WEST ACU 15:11
PROVIDERS: Internal Medicine Cardiovascular Disease; Physician Assistant; Physician Assistant Medical; ADMITTING PHYSICIAN Internal Medicine; EMERGENCY PHYSICIAN Student in an Organized Health Care Education/Training Program; FAMILY PHYSICIAN Internal Medicine; OTHER PHYSICIAN Internal Medicine Cardiovascular Disease
PROC: B24BZZ4 Ultrasonography of Heart with Aorta, Transesophageal (ICD-10-PCS; 2024-02-27)
PROC: 5A2204Z Restoration of Cardiac Rhythm, Single (ICD-10-PCS; 2024-02-27)
DX: I48.19 Other persistent atrial fibrillation (principal); I50.33 Acute on chronic diastolic (congestive) heart failure; D68.1 Hereditary factor XI deficiency; N17.9 Acute kidney failure, unspecified; I5A Non-ischemic myocardial injury (non-traumatic); E78.00 Pure hypercholesterolemia, unspecified; I11.0 Hypertensive heart disease with heart failure; E78.2 Mixed hyperlipidemia; I08.0 Rheumatic disorders of both mitral and aortic valves; I42.8 Other cardiomyopathies; K21.9 Gastro-esophageal reflux disease without esophagitis; G40.909 Epilepsy, unspecified, not intractable, without status epilepticus; D32.0 Benign neoplasm of cerebral meninges; J30.2 Other seasonal allergic rhinitis; Z96.651 Presence of right artificial knee joint; Z83.3 Family history of diabetes mellitus; Z79.01 Long term (current) use of anticoagulants; Z88.8 Allergy status to other drugs, medicaments and biological substances; Z87.442 Personal history of urinary calculi; Z79.2 Long term (current) use of antibiotics
CPT/HCPCS: 71046; 80048; 80053; 83880; 84484; 85025; 85610; 85730; 92960; 93005; 93312; 93320; 93325; 96374; 96375; 96376; 99285

== ENCOUNTER 2024-05-28 05:57 | Day surgery (SDC) | payer OTHER, SELFPAY ==
[2024-05-07 08:27] LABS: % Basophils 0.4 % (0-2); % Eosinophils 4.2 % (0-6); % Immature Granulocytes 0.4 % (0-0.5); % Lymphocytes 12.4 % (20.5-51.1); % Monocytes 10.3 % (1.7-9.3); % Neutrophils 72.3 % (42.2-75.2); Absolute Eosinophils 0.3 10^3/uL (0-0.7); Absolute Lymphocytes 0.9 10^3/uL (1.2-3.4); Absolute Monocytes 0.7 10^3/uL (0.1-0.6); Absolute Neutrophils 5.2 10^3/uL (1.4-6.5); Hematocrit 36.3 % (39.0-52.0); Hemoglobin 12.3 g/dL (13.0-18.0); Mean Corp Hgb Conc. 33.9 g/dL (33.0-37.0); Mean Corpuscular Hgb 29.9 pg (27.0-31.0); Mean Corpuscular Volume 88.3 fL (80.0-94.0); Mean Platelet Volume 9.9 fL (7.4-10.4); Nucleated Red Blood Cells % 0 % (-); Platelet Count 198 10^3/uL (130-400); Red Blood Cell Count 4.11 10^6/uL (4.70-6.10); Red Cell Dist. Width 13.5 % (11.5-14.5); White Blood Cell Count 7.2 10^3/uL (4.8-10.8)
[2024-05-07 08:30] VITALS: BMI 34.2
[2024-05-07 08:39] LABS: INR 1.21; PT 15.3 Sec (11.4-14.6)
[2024-05-07 08:45] LABS: ALT (SGPT) 40 U/L (0-50); AST (SGOT) 44 U/L (17-59); Albumin 4.3 g/dl (3.5-5.0); Alkaline Phosphatase 158 U/L (38-126); Blood Urea Nitrogen 29 mg/dl (9-20); Calcium 9.4 mg/dl (8.4-10.2); Carbon Dioxide 24 mmol/L (22-30); Chloride 104 mmol/L (98-107); Estimated Creatinine Clearance 81 ml/min; Glucose 159 mg/dl (70-99); Potassium 4.3 mmol/L (3.5-5.1); Sodium 140 mmol/L (135-145); Total Bilirubin 0.6 mg/dl (0.2-1.3); Total Protein 6.9 g/dl (6.3-8.2); eGFR > 60.00
[2024-05-28] VITALS (10 sets, daily range): BP systolic 98–184; BP diastolic 45–73; BMI 31.0
--- NOTE | 2024-05-28 07:34 | ITS.CL.ABL ---
Tinsmith Helper - Ablation
Ablation
Procedure Report:
Primary Cnc Set Up Operator: Gerardo Davis MD
Procedure Date: 05/28/2024
Patient History:
Patient is a pleasant 73-year-old male with a past medical history significant for heart failure with preserved ejection fraction, mixed dyslipidemia, hypertension, factor XI deficiency, seizure disorder, history of brain meningioma s/p resection
2000, history of nephrolithiasis, and symptomatic paroxysmal atrial fibrillation.
See H&P for complete details.
Indication:
Symptomatic paroxysmal atrial fibrillation
Heart failure in the setting of atrial fibrillation and prior nonischemic cardiomyopathy
Arrhythmia Specific History:
Prior Medical Therapies for Rate and Rhythm Control:
X Beta-festus
[ ] Calcium channel-festus
[ ] Amiodarone
[ ] Dronederone
[ ] Sotalol
[ ] Flecainide
[ ] Dofetilide
[ ] Options limited by bradycardia
[ ] Options limited by comorbid renal disease
Prior Procedural Therapies for AF/AFL:
X Cardioversion
[ ] Pulmonary Vein Isolation
[ ] Posterior Wall Isolation
[ ] Additional lines (Specify)
[ ] Surgical Gregory-MAZE or PVI (Specify)
Procedure Performed:
X AF ablation procedure (43978) -- includes LA/CS pacing, trans-septal, 3D mapping, + ICE
[ ] +IV drug (83410)
[ ] +Other Arrhythmia (79115)
[ ] +Other AF Line/ablation (09249)
Risks and expected recovery has been explained in detail. Alternative options have been explored, and in a shared-decision making fashion we have decided that this was the most appropriate procedure.
Method
NPO status confirmed. Grounding pad applied. Defibrillator pads applied. Continuous surface ECG, pulse oximetry, and blood pressure were monitored. Procedure was performed under general anesthesia, with anesthesia services.
Both groins were clipped, prepped with Chloraprep, and draped in sterile fashion. Time out was called. Local anesthesia administered with bupivacaine. The right and left femoral veins were accessed for catheter placement, using ultrasound guidance,
micro-puncture needle/wire, and modified seldinger technique. 3 sheaths were placed. The following catheters were used:
[ ] Tacticath SE (D/F Curve) ablation catheter
X Viewflex 9Fr ICE catheter
X Inquiry decapolar 6Fr diagnostic catheter
[ ] CRD Hex 6Fr
[ ] Arctic Front Advance Cryoballoon ([ ]28mm[ ]23mm)
[ ] Achieve Advance mapping catheter ([ ]15mm[ ]20mm)
X FlexCath Contour 10 Fr with PulseSelect PFA Catheter
X Advisor HD Grid Mapping Catheter, SE
[ ] Acuson AcuNav 8 Fr ICE catheter
[ ]Other: [ ]
Intracardiac ultrasound (ICE) was carefully advanced into the right atrium to guide sheath placement over a J-wire, catheter placement, guide trans-septal puncture, identify potential complications, identify anatomic structures and ensure proper
contact between ablation catheter and tissue. Prior to transseptal, there was no evidence of pericardial effusion noted on intracardiac ultrasound. No change to pericardium no evidence pericardial effusion during procedure and post procedure.
Heparin was given prior to trans-septal puncture. Heparin was given to achieve and maintain a target ACT of 300-400 seconds throughout the procedure. Following initial heparin bolus, ACT noted to be greater than 400 which was rechecked on multiple
machines. Routine interval ACT checks demonstrated ACT greater than 400 no further heparin was given due to elevated ACT. No evidence of bleeding during procedure. Likely susceptibility to heparin related to factor XI deficiency.
Trans-septal access was performed under ICE guidance. The trans-septal puncture was performed with a SafeSept wire through a Brockenbrough needle assembly through the steerable sheath. The wire was visualized as it entered the LSPV and system
advanced under ICE guidance and fluoroscopy into the LA. The Brockenbrough needle assembly, SafeSept wire and sheath dilator were removed under negative pressure. LA pressure was measured and recorded.
ICE and 3D mapping was performed to identify relevant cardiac structures. A careful 3D map was created to assess for regions of low-voltage and abnormal electrogram signals using HD grid mapping catheter and PulseSelect catheter. Additional mapping
was performed as outlined below.
Prior to ablation, glycopyrrolate was provided. PulseSelect catheter was advanced over J-wire to the ostium of each vein. Pulmonary vein isolation was performed with ostial and antral lesions in a circumferential manner. Contact was visualized via
EAM, ICE, fluoroscopy, and EGM signals. Following completion of ablation lesions, a post-ablation voltage/activation map was performed in sinus rhythm. Entrance and exit block were confirmed for each vein. Posterior wall was noted to have healthy
EGM's/voltage with more decreasing voltage towards the roof.
Catheter and sheath were removed from the left atrium and post-ablation intracardiac echo evaluation was consistent with pre-ablation with no changes and no pericardial effusion and there is no left atrial thrombus or left ventricle thrombus seen.
Electrophysiology study was performed. Hemostasis was obtained with figure of 8 stitch for each groin and with manual pressure. Protamine was used for reversal.
Estimated Blood Loss
5 mL
Complications
None
Fluoroscopy: 4.3 minutes; 21.8 mGy; DAP 3.0
Baseline Intervals:
Rhythm: SR
MO: 199 ms
QRS: 122 ms
QT: 483 ms
QTc: 441 ms
A-A: 1378 ms
R-R: 1378 ms
Post-Procedure Intervals:
MO: 198 ms
QRS: 120 ms
QT: 493 ms
QTc: 479 ms
A-A: 1081 ms
R-R: 1081 ms
AVWB: 360 ms
AVERP: 600/310 ms
Recommendations
- Bedrest with straight-leg precautions as ordered
- Anticipate same day discharge if patient meeting clinical metrics
- Resume home medications as indicated
- Ok to resume anticoagulation tonight if patient and groin sites stable
- PPI daily for 30 days
- Plan for follow-up in office as scheduled
Vargas Mejia DO
Clinical Cardiac Community Relations Assistant
cc: Gerardo Davis MD; Jasbir Narvaez MD
[2024-05-28 10:06] LABS: ACT-LR - POC 197 Seconds (116-155)
[2024-05-28] MEDS: ANESTHETIC LOZENGE 1 LOZENGE PO (10:38)
[2024-05-28 10:52] LABS: ACT-LR - POC > 397 Seconds (116-155)
[2024-05-28 10:52] LABS: ACT-LR - POC > 397 Seconds (116-155)
[2024-05-28 10:52] LABS: ACT-LR - POC > 397 Seconds (116-155)
[2024-05-28 10:52] LABS: ACT-LR - POC > 397 Seconds (116-155)
[2024-05-28 10:52] LABS: ACT-LR - POC > 397 Seconds (116-155)
[2024-05-28 10:52] LABS: ACT-LR - POC > 397 Seconds (116-155)
[2024-05-28] MEDS: ZOFRAN 4 MG IV (11:15)
--- NOTE | 2024-05-28 12:47 | W.PN.UPDATE ---
Update Note
Progress Note Update
Pt seen post PVI. Right groin site without ht/bleeding. Post EKG NSR w/1st deg AVB, no acute changes. Resume eliquis today, continue other meds as before. Followup in [address] Davis. Home later today if groin site/tele remain stable.
== END 2024-05-28 15:00 | disposition home or self-care (01) ==
LOC: CATH 05:57
PROVIDERS: ATTENDING PHYSICIAN Internal Medicine Cardiovascular Disease; FAMILY PHYSICIAN Internal Medicine; OTHER PHYSICIAN Internal Medicine Cardiovascular Disease
DX: I48.0 Paroxysmal atrial fibrillation (principal); I11.0 Hypertensive heart disease with heart failure; D32.0 Benign neoplasm of cerebral meninges; E66.9 Obesity, unspecified; Z68.34 Body mass index [BMI] 34.0-34.9, adult; I50.32 Chronic diastolic (congestive) heart failure; D68.1 Hereditary factor XI deficiency; M19.90 Unspecified osteoarthritis, unspecified site; K21.9 Gastro-esophageal reflux disease without esophagitis; Z79.01 Long term (current) use of anticoagulants; Z79.899 Other long term (current) drug therapy; E78.2 Mixed hyperlipidemia; G40.909 Epilepsy, unspecified, not intractable, without status epilepticus; Z87.442 Personal history of urinary calculi; I42.8 Other cardiomyopathies
CPT/HCPCS: C1732; C1894; C1733; C1769; C1766; 36415; 75572; 76937; 80053; 83735; 85025; 85347; 85610; 86850; 86900; 86901; 93005; 93656; Q9967

== ENCOUNTER → 2024-09-25 15:03 | Outpatient (REF) | payer OTHER, SELFPAY | LOC: MRI 3T 15:03 | PROVIDERS: ATTENDING PHYSICIAN Specialist/Technologist Athletic Trainer; FAMILY PHYSICIAN Internal Medicine | DX: M25.572 Pain in left ankle and joints of left foot (principal) | CPT/HCPCS: 73721 ==

== ENCOUNTER 2025-04-06 07:01 | Day surgery (SDC) | payer OTHER, SELFPAY ==
[2025-04-06] MEDS: ELIQUIS 5 MG PO (07:43)
== END 2025-04-06 09:00 | disposition home or self-care (01) ==
LOC: CATH 07:01
PROVIDERS: ATTENDING PHYSICIAN Student in an Organized Health Care Education/Training Program; FAMILY PHYSICIAN Internal Medicine; OTHER PHYSICIAN Internal Medicine Cardiovascular Disease
DX: I48.0 Paroxysmal atrial fibrillation (principal); I10 Essential (primary) hypertension; R06.02 Shortness of breath; Z79.01 Long term (current) use of anticoagulants; Z79.899 Other long term (current) drug therapy; Z79.85 Long-term (current) use of injectable non-insulin antidiabetic drugs; E78.5 Hyperlipidemia, unspecified; D68.1 Hereditary factor XI deficiency; G40.909 Epilepsy, unspecified, not intractable, without status epilepticus
CPT/HCPCS: 92960; 93005

== ENCOUNTER 2025-04-15 18:27 | Inpatient (IN) | payer OTHER, SELFPAY ==
[2025-04-15] VITALS (40 sets, daily range): BP systolic 81–144; BP diastolic 59–113; BMI 29.8; BMI 28.7
[2025-04-15 12:47] LABS: % Basophils 0.7 % (0-2); % Eosinophils 2.9 % (0-6); % Immature Granulocytes 0.1 % (0-0.5); % Lymphocytes 9.9 % (20.5-51.1); % Monocytes 11.7 % (1.7-9.3); % Neutrophils 74.7 % (42.2-75.2); Absolute Basophils 0.1 10^3/uL (0-0.2); Absolute Eosinophils 0.2 10^3/uL (0-0.7); Absolute Lymphocytes 0.8 10^3/uL (1.2-3.4); Absolute Monocytes 0.9 10^3/uL (0.1-0.6); Absolute Neutrophils 5.7 10^3/uL (1.4-6.5); Hematocrit 33.5 % (39.0-52.0); Hemoglobin 10.9 g/dL (13.0-18.0); Mean Corp Hgb Conc. 32.5 g/dL (33.0-37.0); Mean Corpuscular Volume 86.1 fL (80.0-94.0); Mean Platelet Volume 9.7 fL (7.4-10.4); Nucleated Red Blood Cells % 0 % (-); Platelet Count 222 10^3/uL (130-400); Red Blood Cell Count 3.89 10^6/uL (4.70-6.10); Red Cell Dist. Width 13.5 % (11.5-14.5); White Blood Cell Count 7.7 10^3/uL (4.8-10.8)
[2025-04-15 13:00] LABS: ALT (SGPT) 47 U/L (0-50); AST (SGOT) 54 U/L (17-59); Albumin 4.3 g/dl (3.5-5.0); Alkaline Phosphatase 123 U/L (38-126); Blood Urea Nitrogen 39 mg/dl (9-20); Calcium 9.2 mg/dl (8.4-10.2); Carbon Dioxide 24 mmol/L (22-30); Chloride 104 mmol/L (98-107); Glucose 134 mg/dl (70-99); Sodium 138 mmol/L (135-145); Total Bilirubin 0.7 mg/dl (0.2-1.3); Total Protein 7.2 g/dl (6.3-8.2); eGFR 44.38
[2025-04-15 13:11] LABS: Troponin I < 0.012 ng/ml
--- NOTE | 2025-04-15 14:44 | ED.GENMED ---
History of Present Illness
General
Chief Complaint: Heart Rate Problem
Source: patient
Exam Limitations: none
Time Seen by Provider: 04/15/25 14:27
History of Present Illness
History of Present Illness:
Note:
CHIEF COMPLAINT(S)
Atrial fibrillation and shortness of breath.
HISTORY OF PRESENT ILLNESS
The patient is a 74-year-old male with a history of atrial fibrillation presenting with persistent shortness of breath over the past couple of days. The patient recently underwent cardioversion approximately two weeks prior, which was only
temporarily effective as he reverted to atrial fibrillation. He reports having undergone a melanoma removal and skin graft on the right leg, approximately on February 24 and March 27, respectively. The patient discontinued apixaban two days prior to
each procedure and was managed without general anesthesia for the melanoma surgery. He denies chest pain but reports generalized pain described as 'incredible agony,' notably limiting mobility. He reports following up with a well logging mud analysis captain and an
chopper feeder. The well logging mud analysis captain recommended treatment adjustment to diltiazem.
PHYSICAL EXAM
- Nursing notes reviewed and vital signs reviewed.
- General: Blood pressure 134/88 mmHg, temperature 97.4�F.
- Cardiovascular: Tachycardia, irregularly irregular rhythm.
- Pulmonary: Lungs clear bilaterally, no respiratory distress noted.
- Abdomen: Soft, non-tender, non-distended.
- Extremities: Dressing clean, dry, intact over the right lower leg, melanoma removal site; skin graft site on the right upper leg is well-healed.
DIFFERENTIAL DIAGNOSIS
The Differential Diagnosis includes, in no particular order and is not limited to:
- Atrial fibrillation with rapid ventricular response
- Congestive heart failure
- Pulmonary embolism
- Recurrent atrial flutter
- Pericarditis
- Myocardial infarction
- Thyrotoxicosis
- Chronic obstructive pulmonary disease exacerbation
- Anxiety response
- Pneumonia
CARE-UPDATE
04/15/25 - 17:14
Patients chest x-ray and BNP levels indicate congestive heart failure. Showing improved rate control with IV Diltiazem. Administered IV Lasix for diuresis. Plan to admit under hospitalist care for continued rate control and diuresis management.
EKG
My independent EKG interpretation is:
- Rhythm: Atrial fibrillation with a rapid ventricular response
- Heart rate: 147 beats per minute
- [place]: Normal
- QRS duration: Normal
- QTc interval: 488 milliseconds
- Notable abnormalities: ST & T wave abnormalities; T wave inversions in lateral leads
Disposition:
SUMMARY OF ENCOUNTER
The patient is a 74-year-old male with atrial fibrillation and persistent shortness of breath. He recently underwent a cardioversion that was temporarily effective. Due to the patients symptoms and background, the emergency department administered
IV Diltiazem for rate control in atrial fibrillation with rapid ventricular response and IV Lasix for suspected congestive heart failure exacerbation.
MEDICATION RECONCILIATION
Administered IV Diltiazem for rate control and IV Lasix for diuresis management of congestive heart failure.
MEDICAL DECISION MAKING
1. Number & Complexity of Problems:
Chronic conditions affecting care: Atrial fibrillation, history of melanoma, congestive heart failure.
2. Data Reviewed:
Category 1: Chest x-ray and BNP levels indicating congestive heart failure were reviewed.
PATHOLOGIES TO CONSIDER
- Congestive heart failure exacerbation
- Pulmonary embolism
- Myocardial infarction
- Atrial fibrillation with rapid ventricular response
Past History
Past History
ED Past Medical History: HTN, Hypercholesterolemia and Other (Factor XI deficiency, right knee prosthesis infection, meningioma)
ED Past Surgical History: Brain, Orthopedic and Urological
Social History
Tobacco: Non-smoker
Alcohol: None
Drug: None
Personal:
Living: with family
Employment: Employed
Family History
Family History: Diabetes
Phy Exam
Physical Exam
Physical Exam:
.
Scores
Heart Failure Risk
Heart Failure Risk Score: Yes
History of Stroke or TIA: No
History of intubation for respiratory distress: No
Heart rate on ED arrival >/= 110: Yes
SaO2 <90% on arrival on room air: No
HR >/=110 during 3min walk test (or too ill to perform test): Yes
ECG has acute ischemic changes: No
Urea >/=12mmol/L (BUN 33.6mg/dL): Yes
Serum CO2>/=35mmol/L: No
Troponin I or T elevated to OK Level (0.4mg/dL): No
NT-proBNP >/=5,000ng/L (5,000pg/ml): Yes
HF Risk Score: 4
Admission Status: HIGH RISK 26.1% Consider SNF treatment or admission to hospital
Course
Orders/Labs/Results
Orders:
Orders
04/15/25 12:14
Electrocardiogram (*1) Urgent
Reason for Study: Chest Pain
EKG- Treatment ONCE
04/15/25 12:20
Complete Blood Count/With Diff Urgent
Comprehensive Metabolic Panel Urgent
NT-proBNP Urgent
Comment: ADD ON
Troponin I Urgent
04/15/25 14:45
Add On- LAB Urgent
Tests Added?: bnp
Diltiazem 125 mg/125 ml Nss [Cardizem] 125 mg in 125 ml IV NOW
Initial dose in mg/hr, then titrate:: 5
Titrate to keep:: Heart rate 80-100 bpm
Titrate by mg/hr:: 5 mg/hr
Frequency of titrations (minutes):: 15
Maximum dose in mg/hr:: 15
Diltiazem HCl [Cardizem] 5 mg IV NOW STA
04/15/25 14:46
CR Chest Portable - 1 View Urgent
Comment:
Reason For Exam: short of breath
Reason Study Needs to be Portable: Patient Unstable
04/15/25 17:09
Furosemide [Lasix] 40 mg IV NOW STA
Abnormal Lab Results
04/15/25
12:20
RBC 3.89 L 10^6/uL
(4.70-6.10)
Hgb 10.9 L g/dL
(13.0-18.0)
Hct 33.5 L %
(39.0-52.0)
MCHC 32.5 L g/dL
(33.0-37.0)
Absolute Lymphs (auto) 0.8 L 10^3/uL
(1.2-3.4)
Absolute Monos (auto) 0.9 H 10^3/uL
(0.1-0.6)
Lymphocytes % 9.9 L %
(20.5-51.1)
Monocytes % 11.7 H %
(1.7-9.3)
BUN 39 H mg/dl
(9-20)
Creatinine 1.6 H mg/dL
(0.7-1.3)
Glucose 134 H mg/dl
(70-99)
04/15/25 12:20
04/15/25 12:20
Vital Signs
Initial and Last Documented VS:
Initial Vital Signs
Temp Pulse Resp BP Pulse Ox
97.4 F 121 16 111/87 95
04/15/25 12:10 04/15/25 12:10 04/15/25 12:10 04/15/25 12:10 04/15/25 12:10
Last Documented Vital Signs
Temp Pulse Resp BP Pulse Ox
97.4 F 89 16 125/90 96
04/15/25 12:10 04/15/25 17:05 04/15/25 17:05 04/15/25 17:05 04/15/25 17:05
*Pulse Oximetry
SaO2: 99
Oxygen Mode of Delivery: Room air
Patient hypoxic: no
*Critical Care Note
Total Time (30-74mins, 75-104mins- exclusive of procedures): 33
comment:
Critical care statement: A total of 33 minutes of critical care time was provided for this patient. This includes management of unstable vital signs, evaluation of the patient at bedside, reviewing the patient's pertinent medical records, discussion
with consultants, review of old EKGs and review of pertinent medical records. This time with separate from time utilized to perform the aforementioned documented procedures
ED Attending Note
-
Portions of this chart may have been created with voice recognition software.� Occasional wrong word or��sound alike� substitutions may have occurred due to the inherent limitations of voice recognition software.
Discharge Plan
Departure
Patient Disposition: Admit
Date of Disposition: 04/15/25
Time of Disposition: 17:17
Admit to: IVU
Presentation/result/management discussed w/ accepting MD/DO: Hospitalist
Patient with high blood pressure during this ER visit?: Yes
Condition: Fair
Discharge Problem:
Acute exacerbation of CHF (congestive heart failure), Atrial fibrillation with rapid ventricular response
Prescriptions:
No Action
cefadroxil 500 MG capsule
500 mg PO DAILY
Rx Instructions:
prophylaxis s/p R knee replacement
omeprazole magnesium [Prilosec OTC] 20 MG tablet,delayed release (DR/EC)
20 mg PO DAILY
metoprolol succinate 25 MG tablet extended release 24 hr
25 mg PO BID
red yeast rice 600 mg Tablet
600 mg PO QPM
furosemide 40 MG tablet
40 mg PO DAILY
Eliquis 5 mg Tablet
5 mg PO BID Qty: 60 0RF
coenzyme Q10 [Co Q-10] 200 mg Capsule
200 mg PO QPM
saw palmetto 450 mg Capsule
450 mg PO DAILY
turmeric root extract 500 mg Capsule
500 mg PO DAILY
acetaminophen [Tylenol 8 Hour] 650 mg Tablet Extended Release
650 mg PO Q8HPRN PRN (Reason: pain)
Ozempic 0.25 mg or 0.5 mg (2 mg/3 mL) Pen Injector
0.5 mg SC QWEEK
Referrals:
Gerardo Davis MD [Family Provider, Cardiology]
Interventions
Interventions:
*Risk Screen - Suicide Last Done: 04/15/25 14:33
*General Assessment Last Done: 04/15/25 14:33
*Neglect/Abuse Screening Last Done: 04/15/25 14:33
*ED- Fall Risk Assessment Last Done: 04/15/25 14:33
*ED COVID-19 Vaccine History Last Done: 04/15/25 14:33
ED- Cardiac Assessment Last Done: 04/15/25 14:33
ED- Pulmonary Assessment Last Done: 04/15/25 14:33
Discharge Date and Time
Print Language: SENEGALESE
[2025-04-15] MEDS: CARDIZEM 5 MG IV (14:52)
[2025-04-15] MEDS: CARDIZEM 125 IV (14:54)
[2025-04-15 15:27] LABS: NT-proBNP 8100 pg/ml
--- NOTE | 2025-04-15 17:28 | HPS.HSE ---
Family Physician
-
Family Physician: Gerardo Davis
Chief Complaint
-
Shortness of breath
History of Present Illness
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
shortness of breath ongoing for the past 2 weeks. The patient reports he underwent a melanoma removal and skin grafting on his right leg approximately February 24 and March 27. He was placed under anesthesia. He reports after anesthesia procedure he
always goes into A-fib. He went into A-fib after this procedure. He went to see his outpatient calibration checker and cardioversion was performed outpatient 2 weeks ago. Two days after cardioversion, he returned back into A-fib. He contacted his
calibration checker again who increased his metoprolol dosage to 25 mg twice daily. Since the skin grafting procedure, he has been complaining of shortness of breath and palpitation. He contacted his calibration checker again today given his persistent symptoms
and was sent to the ER for evaluation.
Upon presentation to the ED, EKG obtained showed atrial fibrillation with RVR. Laboratory showed WBC 7.7, hemoglobin 10.9, hematocrit 33.5, platelets 223. Sodium 138, potassium 5.0, chloride 104, BUN 39, creatinine 1.6.
Medical History
Past Medical History
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
Past Surgical History: Reports Other (Brain meningioma excision, melanoma excision, joint replacements, cardioversion x 2)
Social History
Tobacco: Non-smoker
Alcohol: None
Drug: None
Family History
Family History: Not pertinent
Allergies / Home Medications
Allergies reflects when Allergies were last updated in [facility].
Home Medications with original date entered in [facility]
Allergy/Medication List:
Allergies
Allergy/AdvReac Type Severity Reaction Status Date / Time
cat dander Allergy SNEEZING Verified 04/15/25 12:13
ertapenem sodium (From Allergy Seizure Verified 04/15/25 12:13
Invanz)
pollen extracts Allergy SNEEZING Verified 04/15/25 12:13
Home Medications
cefadroxil 500 mg capsule 500 mg PO DAILY retirement-Infection 04/11/16
omeprazole magnesium 20 mg tablet,delayed release (Prilosec OTC) 20 mg PO DAILY Gastrointestinal issue 10/13/21
metoprolol succinate 25 mg tablet,extended release 24 hr 25 mg PO BID Blood Pressure 11/15/21
furosemide 40 mg tablet 40 mg PO DAILY Fluid Retention/Swelling 02/26/24
red yeast rice 600 mg tablet 600 mg PO QPM Supplement 02/26/24
apixaban 5 mg tablet (Eliquis) 5 mg PO BID #60 tabs 02/27/24
coenzyme Q10 200 mg capsule (Co Q-10) 200 mg PO QPM 05/02/24
saw palmetto 450 mg capsule 450 mg PO DAILY 05/02/24
turmeric root extract 500 mg capsule 500 mg PO DAILY 05/02/24
acetaminophen 650 mg tablet,extended release (Tylenol 8 Hour) 650 mg PO Q8HPRN PRN pain 05/28/24
semaglutide 0.25 mg or 0.5 mg (2 mg/3 mL) subcutaneous pen injector (Ozempic) 0.5 mg SC QWEEK 04/06/25
Review of Systems
-
History Source: Patient
A 12 point ROS was completed and negative except as noted: Yes
Constitutional: Reports See HPI
EENT: Reports See HPI
Respiratory: Reports See HPI
Cardiac: Denies Chest Pain or Diaphoresis
Physical Exam
Vital Signs
Vital Signs
Temp Pulse Resp BP Pulse Ox
97.4 F 89 16 125/90 96
04/15/25 12:10 04/15/25 17:05 04/15/25 17:05 04/15/25 17:05 04/15/25 17:05
Physical Exam
General: Well Developed, Well Nourished and No Apparent Distress
HEENT: NormoCephalic and Anicteric
Respiratory: Crackles; No Wheezes or Rhonchi
Cardiac: S1/S2 and Irregular Rhythm
GI: Soft, Non Tender, Non Distended and Normal Bowel Sounds
Musculoskeletal: No Edema
Skin: Other (skin graft site on right upper leg healed. 3rd digit left foot with ecchymosis. )
Neuro: Awake, Alert, Oriented and AO x 3
Psych: Calm
Laboratory Results
-
04/15/25 12:20
04/15/25 12:20
Laboratory Results
Total Bilirubin 0.7 mg/dl (0.2-1.3) 04/15/25 12:20
AST 54 U/L (17-59) 04/15/25 12:20
ALT 47 U/L (0-50) 04/15/25 12:20
Alkaline Phosphatase 123 U/L (38-126) 04/15/25 12:20
Troponin I < 0.012 ng/ml 04/15/25 12:20
Impression/Plan
-
Assessment/plan
#Acute on chronic HFpEF
#Nonischemic cardiomyopathy recovered EF
-Echocardiogram 08/13 with LVEF 55%. Stage I diastolic dysfunction suggestive of abnormal relaxation.
-proBNP on presentation 8100
-Troponin normal
-CXR-mildly decreased lung volumes with minimal bibasilar atelectasis, more pronounced on the left.
-S/p 40 mg IV Lasix in the ED
-Continue IV Lasix 40 mg daily
-I's and O's
-Daily weights
-Consult cardiology
-Update echocardiogram
#Persistent atrial fibrillation with RVR
-Hemodynamically stable
-Initiated on IV Cardizem drip
-Continue home metoprolol
-Cardiology consult
-Anticoagulation with Eliquis
#KENDELL
-Creatinine 1.6 (baseline 1.2)
-Monitor creatinine with diuresis
-Follow BMP
-Avoid nephrotoxins
#Anemia
-Likely anemia of chronic disease
-Check iron panel
-Monitor CBC
#GERD
-Continue PPI
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
-Continue cefadroxil (ongoing use for 20 years)
CODE STATUS full code
DVT prophylaxis Eliquis
[2025-04-15] MEDS: LASIX 40 MG IV (17:33)
[2025-04-15] MEDS: ELIQUIS 5 MG PO (20:35)
--- NOTE | 2025-04-15 21:10 | PTCARENOTE ---
Pt received from ED RN. day gtt running through right AC site @ 10mg/hr/10ml/hr. HR 100bpm. pt is AAOx3. afib on monitor. assessment as documented. xray to bedside to do ordered left foot xray. safe environment maintained.
[2025-04-15] MEDS: KEFLEX 250 MG PO (22:10)
[2025-04-16] VITALS (8 sets, daily range): BP systolic 121–144; BP diastolic 64–94; PULSE 57–68; BMI 28.7
[2025-04-16] MEDS: CARDIZEM 125 IV (01:38)
--- NOTE | 2025-04-16 03:27 | W.PN.UPDATE ---
Update Note
Progress Note Update
pt here with a fib and CHF on a Cardizem gtt. He rang to make the RN aware that he was having 7/10 R posterior calf pain that woke him up out of his sleep- like a 'burning pain'. He states this pain has been increasing over the past 2 days.�He takes
5mg of Eliquis BID at home- states he hasn't missed a dose- but has been less active the past few days with a fib. He had a recent melanoma excised on the anterior portion of his R calf- local erythema noted. On the posterior side of his calf there
is a red raised hardened area that is warm to the touch- no visualized open areas directly around the site and the pt denies any trauma to the area. He does report pain on palpation. Pt has adequate movement of b/l extremities and palpable pulses
b/l. X1 dose of morphine 0.5mg ordered and PRN Tylenol as well as an ultrasound to rule out dvt. D-Dimer added to morning labs.��
[2025-04-16] MEDS: MORPHINE SULFATE 0.5 MG IV (03:39)
[2025-04-16] MEDS: KEFLEX 250 MG PO ×2 (05:36→13:21)
[2025-04-16] MEDS: TYLENOL 650 MG PO (05:38)
[2025-04-16 06:12] LABS: % Basophils 0.4 % (0-2); % Immature Granulocytes 0.3 % (0-0.5); % Lymphocytes 11.7 % (20.5-51.1); % Monocytes 10.8 % (1.7-9.3); % Neutrophils 72.8 % (42.2-75.2); Absolute Eosinophils 0.3 10^3/uL (0-0.7); Absolute Lymphocytes 0.9 10^3/uL (1.2-3.4); Absolute Monocytes 0.8 10^3/uL (0.1-0.6); Absolute Neutrophils 5.6 10^3/uL (1.4-6.5); Hemoglobin 10.7 g/dL (13.0-18.0); Mean Corp Hgb Conc. 33.4 g/dL (33.0-37.0); Mean Corpuscular Hgb 28.4 pg (27.0-31.0); Mean Corpuscular Volume 84.9 fL (80.0-94.0); Mean Platelet Volume 9.4 fL (7.4-10.4); Nucleated Red Blood Cells % 0 % (-); Platelet Count 199 10^3/uL (130-400); Red Blood Cell Count 3.77 10^6/uL (4.70-6.10); Red Cell Dist. Width 13.5 % (11.5-14.5); White Blood Cell Count 7.7 10^3/uL (4.8-10.8)
[2025-04-16 06:30] LABS: Blood Urea Nitrogen 36 mg/dl (9-20); Calcium 9.1 mg/dl (8.4-10.2); Carbon Dioxide 26 mmol/L (22-30); Chloride 107 mmol/L (98-107); Estimated Creatinine Clearance 52 ml/min; Glucose 97 mg/dl (70-99); Iron 40 ug/dl (49-181); Magnesium 2.1 mg/dl (1.6-2.3); Potassium 4.3 mmol/L (3.5-5.1); Sodium 141 mmol/L (135-145); eGFR 52.09
[2025-04-16 06:39] LABS: Percent Saturation 10 % (20-50); Total Iron Binding Capacity 393 ug/dl (261-462)
[2025-04-16 07:01] LABS: D-Dimer 0.91 ug/mlFEU (0.00-0.50); TSH 2.84 uIU/ml (0.47-4.68)
[2025-04-16 07:05] LABS: Ferritin 15.5 ng/ml (17.9-464.0)
--- NOTE | 2025-04-16 07:16 | W.PN.HOSP.TC ---
Today's Communication/Plan
-
;/
Assessment / Plan
Assessment / Plan
#Acute on chronic HFpEF
#Nonischemic cardiomyopathy recovered EF
-Echocardiogram 08/13 with LVEF 55%. Stage I diastolic dysfunction suggestive of abnormal relaxation.
-proBNP on presentation 8100
-Troponin normal
-CXR-mildly decreased lung volumes with minimal bibasilar atelectasis, more pronounced on the left.
-S/p 40 mg IV Lasix in the ED
-Continue IV Lasix 40 mg daily
-I's and O's
-Daily weights
-Cardiology input appreciated
-Update echocardiogram pending
#Persistent atrial fibrillation with RVR
-s/p IV Cardizem drip
-Continue home metoprolol dosage
-Initiated on Amiodarone 400mg TID
-For Cardioversion today.
-Anticoagulation with Eliquis
#KENDELL
-Creatinine downtrending to baseline (baseline 1.2-1.4)
-Monitor creatinine with diuresis
-Follow BMP
-Avoid nephrotoxins
#Anemia
-Iron panel ordered
-Indicative of Iron deficiency anemia
#GERD
-Continue PPI
#Right Posterior calf erythema and tenderness
-Pain control
-Ultrasound: No evidence of deep venous thrombosis of the right lower extremity. In the right posterior calf, there is a hypoechoic collection with no internal color flow, this collection measuring 2.7 x 0.6 x 1.1 cm. This may represent hematoma or
seroma. Infected collection is not excluded by imaging alone. Continued follow-up clinically and/or with imaging could be considered.
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
-Continue cefadroxil (ongoing use for 20 years)
CODE STATUS full code
DVT prophylaxis Eliquis
Anticipated Discharge: Within 24 hours
Subjective/Interval History
-
Patient seen and examined at bedside. Reports posterior calf pain resolving with pain medication, although assembly machine tender to palpation and warm to touch. Overall, in no acute distress.
Objective Data
-
Labs:
Laboratory Results
04/16/25
05:46
WBC 7.7
Hgb 10.7 L
Hct 32.0 L
Plt Count 199
Sodium 141
Potassium 4.3
Chloride 107
Carbon Dioxide 26
BUN 36 H
Creatinine 1.4 H
Glucose 97
Calcium 9.1
Vital Signs:
Vital Signs
Temp Pulse Resp BP Pulse Ox
97.6 F 131 17 121/80 93
04/16/25 03:00 04/16/25 06:15 04/16/25 06:15 04/16/25 06:00 04/16/25 06:15
I&O
04/15/25 04/16/25 04/17/25
06:59 06:59 06:59
Intake Total 580 / 580
Output Total 950 / 950
Balance -370 / -370
Review of Systems
-
All other systems: Reviewed and negative (except as documented)
Physical Exam
-
General: Well Developed, Well Nourished and No Apparent Distress
HEENT: Normocephalic and Atraumatic
Respiratory: Crackles
Cardiac: S1/S2, Irregular Rhythm and Tachycardic
GI: Soft, Nontender, Nondistended and Normal Bowel Sounds
Musculoskeletal: No Edema
Skin: Other (skin graft site on right upper leg healed. 3rd digit left foot with ecchymosis. Posterior calf erythematous, warm, with mild tenderness to palpation. )
Neuro: AO x 3
Psych: Calm
--- NOTE | 2025-04-16 07:29 | CON.CAR ---
Addendum entered and electronically signed by Dinesh Hernandez MD 04/16/25 10:47:
I saw and examined the patient.
The Filter Filler's note was reviewed and I agree with the note.
Comment: Briefly, 74-year-old man past medical history of persistent atrial fibrillation presenting with symptomatic rapid atrial fibrillation. On diltiazem drip overnight and heart rates are better controlled today.
He had a recent cardioversion but has not maintained sinus rhythm. Plan to add amiodarone and reattempt direct-current cardioversion today. Tells me he has been reliably anticoagulated with Eliquis which is continued here.
Will set outpatient follow-up to discuss alternative AAD or repeat PVI
Original Note:
Consultation
Consultation Request
Date/Time Consultation Requested: 04/15/2025 at 2001
Date/Time Consultation Performed: 04/16/2025 at 0721
Requesting Provider: Dr. Alcazar
Performing Provider: Dr. Hernandez
Reason for Consultation: Persistent atrial arrhythmia
Medical History
-
History of Present Illness:
Patient came to [facility] ER yesterday with ongoing palpitations and persistent atrial fibrillation and was admitted, cardiology is now consulted. Patient has a history of previously paroxysmal atrial fibrillation and had PVI on 05/28/2024. Patient then
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 Patient says that during his skin grafting procedure he was given general anesthesia and afterwards
was noted to have recurrence of A-fib. Patient feels very fatigued with A-fib, but no palpitations or chest pain. Patient was seen by cardiology on 03/30/2025 and set up for an outpatient CV that was successfully performed on 04/07/2025. Patient
believes he recurred with A-fib the following day. Patient called the cardiology office with ongoing symptoms and was offered a visit to discuss AAD and possible repeat ablation, but due to ongoing symptoms he came back to the ER in hopes of having
another CV. Patient was admitted and started on Cardizem gtt, but remains in A-fib overnight. Patient also says that his right calf is swollen and red, but not hot and so he does not believe he has cellulitis however this is a new change.
PMH:
Paroxysmal to persistent A-fib
s/p PVI 05/2024
s/p successful outpatient CV 04/07/25, symptomatic recurrence 04/08/25
Right LE s/p melanoma excision and skin grafting
Chronic HFpEF
Mixed dyslipidemia
Mild aortic stenosis
Mild to moderate AI
Hypertension
Factor XI deficiency, followed by hematology/oncology
Seizure disorder
History of brain meningioma status post resection 2000
History of nephrolithiasis
Past Medical History
Past Medical History: Other (See HPI)
Past Surgical History: Other (See HPI)
Social History
Tobacco: Non-Smoker
Alcohol: None
Drug: None
Personal:
Living: With Family
Employment: Retired
Family History
Family History: CAD (CVA) and Cancer
Allergies / Home Medications
Allergy/AdvReac Type Severity Reaction Status Date / Time
cat dander Allergy SNEEZING Verified 04/15/25 12:13
ertapenem sodium (From Allergy Seizure Verified 04/15/25 12:13
Invanz)
pollen extracts Allergy SNEEZING Verified 04/15/25 12:13
�Medication �Instructions �Recorded �Confirmed �Type
cefadroxil 500 mg capsule 500 mg PO DAILY fci-Infection 04/11/16 04/15/25 History
omeprazole magnesium 20 mg 20 mg PO DAILY Gastrointestinal 10/13/21 04/15/25 History
tablet,delayed release (Prilosec issue
OTC)
metoprolol succinate 25 mg 25 mg PO BID Blood Pressure 11/15/21 04/15/25 History
tablet,extended release 24 hr
furosemide 40 mg tablet 40 mg PO DAILY Fluid 02/26/24 04/15/25 History
Retention/Swelling
red yeast rice 600 mg tablet 600 mg PO QPM Supplement 02/26/24 04/15/25 History
apixaban 5 mg tablet (Eliquis) 5 mg PO BID #60 tabs 02/27/24 04/15/25 Rx
coenzyme Q10 200 mg capsule (Co 200 mg PO DAILY 05/02/24 04/15/25 History
Q-10)
saw palmetto 450 mg capsule 450 mg PO DAILY 05/02/24 04/15/25 History
turmeric root extract 500 mg 500 mg PO DAILY 05/02/24 04/15/25 History
capsule
semaglutide 0.25 mg or 0.5 mg (2 0.5 mg SC OSORIO 04/06/25 04/15/25 History
mg/3 mL) subcutaneous pen injector
(Ozempic)
cetirizine 10 mg tablet (Zyrtec) 10 mg PO DAILY 04/15/25 04/15/25 History
ibuprofen 600 mg tablet 600 mg PO Q6H PRN mild pain 04/15/25 04/15/25 History
white petrolatum (Vaseline jelly, 1 applic topical DAILYPRN PRN R 04/15/25 04/15/25 History
topical) leg skin graft
Review of Systems
-
History Source: Patient
All other systems: Negative unless noted
Physical Exam
Vital Signs
Temp Pulse Resp BP Pulse Ox
97.6 F 131 17 121/80 93
04/16/25 03:00 04/16/25 06:15 04/16/25 06:15 04/16/25 06:00 04/16/25 06:15
GEN: NAD. AAOx3
HEENT: EOMI, MMM
LUNGS: RA. CTA B/L, no wheeze
CV: Afib on tele. Irreg irreg, S1/S2, 2/6 BSM
ABD: ND
EXT: Right molina dressed with sterile dressing, posteriorly there is swelling and a protuberance with erythema, but no drainage.
NEURO: Gross non-focal
SKIN: No rash
Lab Results
04/16/25 05:46
04/16/25 05:46
Troponin I < 0.012 ng/ml 04/15/25 12:20
Zhg-K-Mrytgwjfrjx Pept 8100 pg/ml 04/15/25 12:20
Impression / Plan
-
Primary front services agent: Gerardo Davis MD
PCP: Jasbir Narvaez MD
Agricultural Commodities Grader: Abundio Prieto DO
Assessment:
Admitted with persistent atrial fibrillation 04/15/2025
Paroxysmal to persistent A-fib
s/p PVI 05/2024
s/p successful outpatient CV 04/07/25, symptomatic recurrence 04/08/25
Right LE s/p melanoma excision and skin grafting, now swollen
Acute on chronic HFpEF
KENDELL
Mixed dyslipidemia
Mild aortic stenosis
Mild to moderate AI
Hypertension
Factor XI deficiency, followed by hematology/oncology
Seizure disorder
History of brain meningioma status post resection 2000
History of nephrolithiasis
Lexiscan MPI 2021 negative for ischemia
Echo 08/17/2023: EF 55%, stage I diastolic dysfunction, mild MR, mild to moderate central aortic regurgitation, mild peak/mean 30/14 mmHg
MARBELLA 02/27/2024: EF 55%, normal RV size and function, no evidence of LARRY thrombus, mild MR, mild , moderate aortic regurgitation
Plan:
-Patient came to [facility] ER yesterday with ongoing palpitations and persistent atrial fibrillation and was admitted, cardiology is now consulted. Patient has a history of previously paroxysmal atrial fibrillation and had PVI on 05/28/2024. Patient then
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 Patient says that during his skin grafting procedure he was given general anesthesia and afterwards
was noted to have recurrence of A-fib. Patient feels very fatigued with A-fib, but no palpitations or chest pain. Patient was seen by cardiology on 03/30/2025 and set up for an outpatient CV that was successfully performed on 04/07/2025. Patient
believes he recurred with A-fib the following day. Patient called the cardiology office with ongoing symptoms and was offered a visit to discuss AAD and possible repeat ablation, but due to ongoing symptoms he came back to the ER in hopes of having
another CV. Patient was admitted and started on Cardizem gtt, but remains in A-fib overnight. Patient also says that his right calf is swollen and red, but not hot and so he does not believe he has cellulitis however this is a new change.
-ECG reviewed by me is A-fib QTc 488 ms
-Talked with patient about his paroxysmal to now persistent A-fib. We talked about rhythm control strategies including eventual repeat ablation and as a bridge adding AAD in the form of amiodarone with another attempt at CV as a temporizing measure
and patient is agreeable to this plan.
-Amiodarone 400 mg TID ordered by me
-CV today, scheduled by me
-Patient has not missed any doses of Eliquis since his CVA on 04/07/2025
-Continue Eliquis 5 mg BID (age 74, Cre 1.4)
-Will arrange cardiology follow-up with EP to discuss repeat ablation
-proBNP 8100 and he has SOB and LICONA. Lasix 40 mg IV daily started by hospitalist on admission, the patient denies any symptomatic change in his SOB. Patient was taking Lasix 40 mg PO daily prior to admission and would resume this dose at time of
discharge. Suspect atrial arrhythmia is driving a lot of his symptoms and also acute volume overload.
-Echo report pending, but EF was historically preserved
-Will focus on rhythm control to help manage heart failure
-Outpatient dose of Toprol XL 25 mg BID has been continued
-Patient is not chronically on aldosterone antagonist and would not start in the setting of EKNDELL
-Patient is not chronically on SGLT2 inhibitor and would not start in the setting of KENDELL
[2025-04-16] MEDS: ELIQUIS 5 MG PO (08:09)
[2025-04-16] MEDS: TOPROL XL 25 MG PO (08:09)
[2025-04-16] MEDS: ZYRTEC 10 MG PO (08:09)
[2025-04-16] MEDS: LASIX 40 MG IV (08:09)
[2025-04-16] MEDS: PACERONE 400 MG PO (09:49)
--- NOTE | 2025-04-16 10:04 | PTCARENOTE ---
Pt for cardioversion this AM. PO Amio and all AM meds given, IV lasix given with good output. US right LL complete. Bedside echo in progress. Updated freezer laboratory technician RN
--- NOTE | 2025-04-16 11:20 | ITS.CL.CARDI ---
Terminal System Operator - Cardioversion
Cardioversion
Procedure Report:
Date of Procedure: 04/16/25
Procedure: Cardioversion
Indication: Symptomatic atrial fibrillation
Performing Physician: Mark Cavazos MD
Technique: The patient was brought to the holding area. Signed informed consent was obtained. A time out was called and performed. The patient was anesthetized by the anesthesia service. Anticoagulation status was reviewed and appropriate. R2 pads
were placed anteriorly and posteriorly. A 200 J synchronized biphasic shock restored normal sinus rhythm. . There were no complications.
Conclusion: Uncomplicated cardioversion from atrial fibrillation to sinus rhythm.
Recommendation: Routine post cardioversion care. Continue intermodal customer service anticoagulation.
--- NOTE | 2025-04-16 11:39 | W.DCSUMMARY ---
Documented by User: Manda Devlin MD, Resident 04/16/25 14:06
Discharge Summary
Discharge Data
Date of Admission: 04/15/25
Date of Discharge: 04/16/25
-
Pending Results: No
Hospital Course
Outpatient interventional physician: Gerardo Davis
Inpatient consultants: Cardiology
Procedures:
1. Cardioversion
Primary Diagnosis:
1. Acute on chronic HFpEF
2. Persistent atrial fibrillation
Secondary Diagnoses:
1. Iron deficiency anemia
Brief Hospital course: This is a 74-year-old male with past medical history of atrial fibrillation on Eliquis w PVI on 05/28/2024, HFpEF, nonischemic cardiomyopathy, hypertension, seizures secondary to brain meningioma, melanoma in situ, GERD who
presented to ED 04/16 complaining of shortness of breath ongoing for the past 2 weeks. The patient reports he underwent a melanoma removal and skin grafting on his right leg approximately February 24 and March 27. He was placed under anesthesia. He
reports after anesthesia procedure he always goes into A-fib. He went into A-fib after this procedure. He went to see his outpatient interventional physician and cardioversion was performed outpatient 2 weeks ago. Two days after cardioversion, he returned
back into A-fib. He contacted his interventional physician again who increased his metoprolol dosage to 25 mg twice daily. Since the skin grafting procedure, he has been complaining of shortness of breath. Upon arrival was tachycardic with HR 127/min though
otherwise hemodynamically stable, afebrile, and on room air. Labs with hemoglobin 10.9, creatinine 1.6, BUN 39, glucose 134, BNP 8100. Troponin negative, ECG showing AF with RVR, no signs of acute ischemic findings. Chest x-ray rather
unremarkable, read as atelectasis. Was started on IV diltiazem drip and IV Lasix 40 mg in the ED. cardiology was consulted to evaluate patient. Patient was continued on IV Lasix 40 mg daily. He was continued on his home metoprolol dosage.
Amiodarone 400 mg 3 times daily was added to his regimen for rhythm control. Prior to discharge, he was cardioverted with conversion to normal sinus rhythm. He will be continued on his usual Eliquis dosage 5 mg twice daily and follow-up with
cardiology outpatient to discuss repeat ablation. He had an Echocardiogram done prior to discharge with result below. On presentation, Hgb was 10.9. iron studies were ordered. Laboratory results confirmed diagnosis of iron deficiency anemia. He Was
administered 1 dose of IV iron prior to discharge. He will be continued on oral iron supplementation and advised to follow-up with his PCP outpatient for further workup
Echocardiogram 04/16/2025
Normal left ventricular chamber size. Normal left ventricular systolic
function. Left ventricular ejection fraction is 55-60% by Quiñones's method of
discs. Normal regional wall motion. Mild concentric left ventricular
hypertrophy. Diastolic function indeterminate due to atrial fibrillation.
Normal right ventricular size and function.
Severely dilated left atrium.
Mitral sclerosis without stenosis. Mild to moderate mitral regurgitation.
Aortic sclerosis without stenosis. Mild to moderate aortic regurgitation.
Mild tricuspid regurgitation. Estimated pulmonary artery pressure of 43 mmHg,
assuming a right atrial pressure of 8 mmHg.
Compared to prior study dated 08/17/2023, there is little significant change
Home medication changes:
Amiodarone 400 mg TID (new)
Ferrous sulfate PO 325 mg daily (new)
Discharge Plan
-
Patient Disposition: Home (Routine Discharge)
Discharge Diagnosis/Procedures: Acute on chronic HFpEF
Persistent atrial fibrillation with RVR
Status post DCCV
Condition: Good
Diet: 2 Gram Sodium
Blood Work: CBC, BMP in one week.
Specialty Instructions: Weigh Daily- Call MD for wt gain/loss 3 lbs overnight/5 lbs in 1 week
Instructions: *DCA Heart Failure Instructions
Referrals:
Gerardo Davis MD [Family Provider, Cardiology]
Vargas Mejia DO [Active, Cardiology] - 05/04/25 3:40 pm
Referral Note: You have an appointment to see Dr. Caruso's nurse practitioner, Razia, at the [place] office on 05/04/2025 at 3:40 PM to discuss another ablation. Please call [phone] if you need to reschedule
Additional Discharge Medication Instructions: -Take amiodarone 200 mg twice a day for 1 month then reduce to 200 mg once a day thereafter. Two separate prescriptions were sent to your pharmacy, one is for the twice a day dose and has zero refills
and the second prescription for once a day dosing with refills.
-Ferrous sulfate 325 mg daily
Prescriptions:
New
ferrous sulfate [Iron (ferrous sulfate)] 325 mg (65 mg iron) tablet
325 mg PO DAILY Qty: 30 0RF
amiodarone 200 mg tablet
200 mg PO BID Qty: 60 0RF
amiodarone 200 mg tablet
200 mg PO DAILY Qty: 30 11RF
Continued
cefadroxil 500 MG capsule
500 mg PO DAILY
Patient Comments:
04/15/2025, filled on 03/26/2025 for 30-day supply.
omeprazole magnesium [Prilosec OTC] 20 MG tablet,delayed release (DR/EC)
20 mg PO DAILY
metoprolol succinate 25 MG tablet extended release 24 hr
25 mg PO BID
red yeast rice 600 mg Tablet
600 mg PO QPM
furosemide 40 MG tablet
40 mg PO DAILY
Eliquis 5 mg Tablet
5 mg PO BID Qty: 60 0RF
coenzyme Q10 [Co Q-10] 200 mg Capsule
200 mg PO DAILY
saw palmetto 450 mg Capsule
450 mg PO DAILY
turmeric root extract 500 mg Capsule
500 mg PO DAILY
Ozempic 0.25 mg or 0.5 mg (2 mg/3 mL) Pen Injector
0.5 mg SC OSORIO
cetirizine [Zyrtec] 10 mg Tablet
10 mg PO DAILY
ibuprofen 600 mg Tablet
600 mg PO Q6H PRN (Reason: mild pain)
white petrolatum [Vaseline] Gel
1 applic TOPICAL DAILYPRN PRN (Reason: R leg skin graft)
Discharge Orders:
Discharge Patient (As Directed); Ordered 04/16/25
Ordered By: Manda Devlin
Discharge Date and Time
Discharge Date/Time: 04/16/25 14:51
Print Language: COMORAN

Documented by User: Gerardo Alcazar DO 04/17/25 13:38
Discharge Summary
Discharge Data
Date of Admission: 04/15/25
Date of Discharge: 04/16/25
Total time spent discharging patient (in min): 31
Discharge Plan
-
Patient Disposition: Home (Routine Discharge)
Discharge Diagnosis/Procedures: Acute on chronic HFpEF
Persistent atrial fibrillation with RVR
Status post DCCV
Condition: Good
Diet: 2 Gram Sodium
Blood Work: CBC, BMP in one week.
Specialty Instructions: Weigh Daily- Call MD for wt gain/loss 3 lbs overnight/5 lbs in 1 week
Instructions: *DCA Heart Failure Instructions
Referrals:
Gerardo Davis MD [Family Provider, Cardiology]
Vargas Mejia DO [Active, Cardiology] - 05/04/25 3:40 pm
Referral Note: You have an appointment to see Dr. Caruso's nurse practitioner, Razia, at the [place] office on 05/04/2025 at 3:40 PM to discuss another ablation. Please call [phone] if you need to reschedule
Additional Discharge Medication Instructions: -Take amiodarone 200 mg twice a day for 1 month then reduce to 200 mg once a day thereafter. Two separate prescriptions were sent to your pharmacy, one is for the twice a day dose and has zero refills
and the second prescription for once a day dosing with refills.
-Ferrous sulfate 325 mg daily
Prescriptions:
New
ferrous sulfate [Iron (ferrous sulfate)] 325 mg (65 mg iron) tablet
325 mg PO DAILY Qty: 30 0RF
amiodarone 200 mg tablet
200 mg PO BID Qty: 60 0RF
amiodarone 200 mg tablet
200 mg PO DAILY Qty: 30 11RF
Continued
cefadroxil 500 MG capsule
500 mg PO DAILY
Patient Comments:
04/15/2025, filled on 03/26/2025 for 30-day supply.
omeprazole magnesium [Prilosec OTC] 20 MG tablet,delayed release (DR/EC)
20 mg PO DAILY
metoprolol succinate 25 MG tablet extended release 24 hr
25 mg PO BID
red yeast rice 600 mg Tablet
600 mg PO QPM
furosemide 40 MG tablet
40 mg PO DAILY
Eliquis 5 mg Tablet
5 mg PO BID Qty: 60 0RF
coenzyme Q10 [Co Q-10] 200 mg Capsule
200 mg PO DAILY
saw palmetto 450 mg Capsule
450 mg PO DAILY
turmeric root extract 500 mg Capsule
500 mg PO DAILY
Ozempic 0.25 mg or 0.5 mg (2 mg/3 mL) Pen Injector
0.5 mg SC OSORIO
cetirizine [Zyrtec] 10 mg Tablet
10 mg PO DAILY
ibuprofen 600 mg Tablet
600 mg PO Q6H PRN (Reason: mild pain)
white petrolatum [Vaseline] Gel
1 applic TOPICAL DAILYPRN PRN (Reason: R leg skin graft)
Discharge Orders:
Discharge Patient (As Directed); Ordered 04/16/25
Ordered By: Manda Devlin
Discharge Date and Time
Discharge Date/Time: 04/16/25 14:51
Print Language: COMORAN
--- NOTE | 2025-04-16 13:02 | CM ---
Patient with recent Hx Melanoma of the leg s/p resection with Dx HF, Persistent atrial fibrillation with RVR, s/p DCCV today to sinus rhythm. Room air. Receiving IV Iron, IV Lasix. Activity; OOB chair today.
Met with patient and Robyn;
the patient resides with his in a 3 story house without any steps to enter, full flight upstairs bedroom/bath.
He was independent with ADLs and ambulation without using an assistive device.
Patient has dressing right lower leg at melanoma resection site, and has been assisting him with wound care at home.
DME - RW, [facility]
Prior [facility]
No prior SNF
PCP - Keon Narvaez
Pharmacy - [facility]
Offered VN for nurse check at home and patient declined.
The patient says he feels ready for d/c home today. IMM completed. will provide a ride home.
Plan home today.
--- NOTE | 2025-04-16 13:17 | PTCARENOTE ---
Assumed care of Pt at 1300; Discharge orders placed - Pt in with PT/OT for last assessment; Iron infusion started and to be completed before d/c; Pt also waiting to speak with Hospitalist before leaving - Dr. Alcazar aware. Will continue to monitor
and assess.
[2025-04-16] MEDS: FERRLECIT 110 MG IV (13:19)
--- NOTE | 2025-04-16 14:08 | PTOTSP ---
pt currently requires no assistance to max assist to complete simple ADLs, functional transfers, ambulation. spouse assisted with LB dressing; will be able to assist at d/c. no acute OT needs identified at this time, will sign off.
--- NOTE | 2025-04-16 14:45 | PTCARENOTE ---
Reviewed discharge with Pt and Pt's ; All questions answered; IV and tele monitor removed; Transport notified - discharge to home.
[2025-04-18 04:40] LABS: Transferrin 294 mg/dL (200-360)
== END 2025-04-16 14:51 | disposition home or self-care (01) | DRG 291 ==
LOC: IMU 18:27
PROVIDERS: Emergency Medicine; Internal Medicine Cardiovascular Disease; Student in an Organized Health Care Education/Training Program; ADMITTING PHYSICIAN Internal Medicine; EMERGENCY PHYSICIAN Emergency Medicine; FAMILY PHYSICIAN Internal Medicine Cardiovascular Disease; OTHER PHYSICIAN Internal Medicine Cardiovascular Disease
PROC: 5A2204Z Restoration of Cardiac Rhythm, Single (ICD-10-PCS; 2025-04-16)
DX: I13.0 Hypertensive heart and chronic kidney disease with heart failure and stage 1 through stage 4 chronic kidney disease, or unspecified chronic kidney disease (principal); I50.33 Acute on chronic diastolic (congestive) heart failure; I48.19 Other persistent atrial fibrillation; D68.1 Hereditary factor XI deficiency; N17.9 Acute kidney failure, unspecified; J98.11 Atelectasis; E78.2 Mixed hyperlipidemia; N18.9 Chronic kidney disease, unspecified; K21.9 Gastro-esophageal reflux disease without esophagitis; D63.8 Anemia in other chronic diseases classified elsewhere; I42.8 Other cardiomyopathies; G40.909 Epilepsy, unspecified, not intractable, without status epilepticus; M19.90 Unspecified osteoarthritis, unspecified site; J30.81 Allergic rhinitis due to animal (cat) (dog) hair and dander; D50.9 Iron deficiency anemia, unspecified; Z96.651 Presence of right artificial knee joint; Z83.3 Family history of diabetes mellitus; Z86.011 Personal history of benign neoplasm of the brain; Z79.01 Long term (current) use of anticoagulants; Z79.85 Long-term (current) use of injectable non-insulin antidiabetic drugs; Z79.2 Long term (current) use of antibiotics; Z87.442 Personal history of urinary calculi; Z82.3 Family history of stroke; Z82.49 Family history of ischemic heart disease and other diseases of the circulatory system; Z86.006 Personal history of melanoma in-situ
CPT/HCPCS: 71045; 73660; 80048; 80053; 82728; 83540; 83550; 83735; 83880; 84443; 84466; 84484; 85025; 85379; 92960; 93005; 93306; 93971; 96374; 96375; 96376; 97162; 97167; 99291; J2916

== ENCOUNTER 2025-08-07 08:17 | Day surgery (SDC) | payer OTHER, SELFPAY ==
[2025-08-03 09:02] LABS: Hematocrit 34.4 % (39.0-52.0); Hemoglobin 11.1 g/dL (13.0-18.0); Mean Corp Hgb Conc. 32.3 g/dL (33.0-37.0); Mean Corpuscular Volume 88.4 fL (80.0-94.0); Nucleated Red Blood Cells % 0 % (-); Platelet Count 237 10^3/uL (130-400); Red Cell Dist. Width 14.3 % (11.5-14.5)
[2025-08-03 09:08] LABS: INR 1.38; PT 17.2 Sec (11.4-14.6)
[2025-08-03 09:26] LABS: ALT (SGPT) 29 U/L (0-50); AST (SGOT) 32 U/L (17-59); Albumin 4.2 g/dl (3.5-5.0); Alkaline Phosphatase 118 U/L (38-126); Blood Urea Nitrogen 31 mg/dl (9-20); Calcium 9.3 mg/dl (8.4-10.2); Carbon Dioxide 26 mmol/L (22-30); Chloride 107 mmol/L (98-107); Glucose 122 mg/dl (70-99); Magnesium 2.0 mg/dl (1.6-2.3); Potassium 4.7 mmol/L (3.5-5.1); Sodium 140 mmol/L (135-145); Total Protein 7.3 g/dl (6.3-8.2); eGFR 52.09
[2025-08-03 13:11] VITALS: BMI 27.2
[2025-08-07] VITALS (13 sets, daily range): BP systolic 96–145; BP diastolic 61–114
--- NOTE | 2025-08-07 10:16 | ITS.CL.ABL ---
Monitoring Engineer - Ablation
Ablation
Procedure Report:
Primary Care: Dr Jasbir Narvaez
Procedure Date: 08/07/2025
Patient History:
Patient is a pleasant 74-year-old male with a past medical history significant for hypertension, heart failure with preserved ejection fraction, hyperlipidemia, mixed lipidemia, valvular heart disease with mild , prior brain surgery, prior seizure
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 2 units FFP on hold per recommendation by hematology oncology.
See H&P for complete details.
Indication:
Symptomatic paroxysmal atrial fibrillation
Heart failure with preserved ejection fraction
Recurrence despite antiarrhythmic medical therapy
Arrhythmia Specific History:
Prior Medical Therapies for Rate and Rhythm Control:
X Beta-festus
[ ] Calcium channel-festus
X Amiodarone
[ ] Dronederone
[ ] Sotalol
[ ] Flecainide
[ ] Dofetilide
[ ] Options limited by bradycardia
[ ] Options limited by comorbid renal disease
Prior Procedural Therapies for AF/AFL:
X Cardioversion
X Pulmonary Vein Isolation - PFA PVI MDT PulseSelect 05/2024
[ ] Posterior Wall Isolation
[ ] Additional lines (Specify)
[ ] Surgical Gregory-MAZE or PVI (Specify)
Procedure Performed:
X AF ablation procedure (57804) -- includes LA/CS pacing, trans-septal, 3D mapping, + ICE
[ ] +IV drug (14757)
[ ] +Other Arrhythmia (87526)
X +Other AF Line/ablation (53567)x2 -- floor line, roof line, posterior wall isolation
Risks and expected recovery has been explained in detail. Alternative options have been explored, and in a shared-decision making fashion we have decided that this was the most appropriate procedure.
Method
NPO status confirmed. Grounding pad applied. Defibrillator pads applied. Continuous surface ECG, pulse oximetry, and blood pressure were monitored. Procedure was performed under general anesthesia, with anesthesia services.
Both groins were clipped, prepped with Chloraprep, and draped in sterile fashion. Time out was called. Local anesthesia administered with bupivacaine. The right femoral vein was accessed for catheter placement, using ultrasound guidance (images
saved to record), micro-puncture needle/wire, and modified seldinger technique. 3 sheaths were placed. The following catheters were used:
X Viewflex 9Fr ICE catheter
X Inquiry decapolar 6Fr diagnostic catheter
[ ] CRD Hex 6Fr
X Agilis 11.5 Fr Steerable Sheath
X Sphere-9 Ablation catheter
[ ] Other: [ ]
A multipolar catheter were advanced to the coronary sinus. Intracardiac ultrasound (ICE) was carefully advanced into the right atrium to guide sheath placement over a J-wire, catheter placement, guide trans-septal puncture, identify potential
complications, identify anatomic structures and ensure proper contact between ablation catheter and tissue.
Heparin was given to achieve and maintain a target ACT of 300-400 seconds throughout the procedure.
Trans-septal access was performed under ICE guidance. The trans-septal puncture was performed with a SafeSept wire through a Brockenbrough needle assembly through the steerable sheath. The wire was visualized as it entered the LSPV and system
advanced under ICE guidance and fluoroscopy into the LA. The Brockenbrough needle assembly, SafeSept wire and sheath dilator were removed under negative pressure. LA pressure was measured and recorded.
ICE and 3D mapping was performed to identify relevant cardiac structures. A careful 3D map was created to assess for regions of low-voltage and abnormal electrogram signals using Sphere-9 catheter. Additional mapping was performed as outlined below.
A 200 J synchronized direct-current cardioversion was performed with faith of sinus rhythm. Patient maintained sinus rhythm through remainder of procedure. Prior to ablation, glycopyrrolate was provided. Sphere 9 catheter was advanced into
the left atrium. Electroanatomic mapping was performed using the Sphere 9 catheter. The left superior, right superior, right inferior pulmonary veins demonstrated persistent isolation. The left inferior pulmonary vein demonstrated exit block with
small fractionated signals at the ostium on the anterior/ridge side of the pulmonary vein. Pulmonary vein isolation was performed using pulsed field ablation in a circumferential manner. Contact was visualized via EAM, ICE, fluoroscopy, and EGM
signals.
After accomplishing pulmonary venous isolation, mapping identified additional areas likely to be extra PV contributors to atrial fibrillation. These areas demonstrated patchy low voltage as well as complex fractionated electrograms. These areas can
be sites for the formation of rotors which can drive and maintain atrial fibrillation. These areas are known to be significant contributors to initiation and perpetuation of atrial fibrillation.
Additional energy applications/additional ablation sets targeted extra PV contributors to atrial fibrillation.
Targets for additional PFA ablation included: LA posterior wall targeted with pulsed electric field energy isolating the posterior wall of the left atrium. Posterior wall isolation was performed by aforementioned methods using Sphere-9 catheter.
After ablation of the posterior wall, targets remained including:
- Inferior LA floor
- Anterior LA roof
- The ridge of tissue between the left atrial appendage and the left sided pulmonary veins (Ligament of Reid)
These areas were ablated using pulsed electric field energy eliminating the extra PV contributors to atrial fibrillation.
Following completion of ablation lesions, a post-ablation voltage/activation map was performed in sinus rhythm. Entrance and exit block were confirmed for each vein and the posterior wall.
Catheter and sheath were removed from the left atrium and post-ablation intracardiac echo evaluation was consistent with pre-ablation with no changes and no pericardial effusion and there is no left atrial thrombus or left ventricle thrombus seen.
Electrophysiology study was performed. Patient was noninducible for additional arrhythmias. No evidence of atrial flutter noted through extensive programmed stimulation. Hemostasis was obtained with figure of 8 stitch for each groin and with
manual pressure. Protamine was used for reversal.
Estimated Blood Loss
5 mL
Complications
None
Fluoroscopy: 3.7 minutes; 29.14 mGy; DAP 3.91
LA Pressure: Pre 11 mmHg, post 13 mmHg
Baseline Intervals:
Rhythm: AF
QRS: 120 ms
QT: 379 ms
QTc: 462 ms
A-A: 673 ms
Post-Procedure Intervals:
OR: 216 ms
QRS: 115 ms
QT: 523 ms
QTc: 520 ms
A-A: 1010 ms
R-R: 1010 ms
AVWB: 440 ms
AVNERP: 600/370 ms
AERP: 600/250 ms
Recommendations
- Bedrest with straight-leg precautions as ordered
- Anticipate same day discharge if patient meeting clinical metrics
- Resume home medications as indicated
- Ok to resume anticoagulation tonight if patient and groin sites stable
- Plan for follow-up in office as scheduled
- Will continue amiodarone for now with planned reduction or discontinuation at next office visit
Vargas Mejia DO, FACC, RS
Clinical Cardiac Head Cager
cc: Dr Jasbir Narvaez; Dr Jhonny Prado
[2025-08-07 12:28] LABS: ACT-LR - POC 255 Seconds (116-155)
[2025-08-07] MEDS: ROBITUSSIN DM 10 ML PO (13:28)
--- NOTE | 2025-08-07 14:04 | PTCARENOTE ---
Cough medicine given for strong non stop coughing episodes resulting in pt raising his legs off bed . Pt was instructed to keep legs on bed repeatedly and was encouraged to hold pressure on groin with coughs. Some improvement noted shortly after med
admin.
[2025-08-11 07:03] LABS: ACT-LR - POC > 397 Seconds (116-155)
[2025-08-11 07:03] LABS: ACT-LR - POC > 397 Seconds (116-155)
[2025-08-11 07:03] LABS: ACT-LR - POC > 397 Seconds (116-155)
== END 2025-08-07 17:15 | disposition home or self-care (01) ==
LOC: CATH 08:17
PROVIDERS: ATTENDING PHYSICIAN Internal Medicine Cardiovascular Disease; FAMILY PHYSICIAN Internal Medicine; OTHER PHYSICIAN Internal Medicine Cardiovascular Disease
DX: I48.0 Paroxysmal atrial fibrillation (principal); E66.9 Obesity, unspecified; Z68.30 Body mass index [BMI] 30.0-30.9, adult; I42.8 Other cardiomyopathies; I11.0 Hypertensive heart disease with heart failure; D68.1 Hereditary factor XI deficiency; Z86.006 Personal history of melanoma in-situ; M19.90 Unspecified osteoarthritis, unspecified site; K21.9 Gastro-esophageal reflux disease without esophagitis; Z79.01 Long term (current) use of anticoagulants; Z79.85 Long-term (current) use of injectable non-insulin antidiabetic drugs; Z79.899 Other long term (current) drug therapy; E78.2 Mixed hyperlipidemia; G40.909 Epilepsy, unspecified, not intractable, without status epilepticus; I44.0 Atrioventricular block, first degree; I50.32 Chronic diastolic (congestive) heart failure; K76.0 Fatty (change of) liver, not elsewhere classified; K80.20 Calculus of gallbladder without cholecystitis without obstruction; Z85.820 Personal history of malignant melanoma of skin
CPT/HCPCS: C1733; C1894; C1730; C1769; C1766; 36415; 75572; 80053; 83735; 83880; 85025; 85347; 85610; 86850; 86900; 86901; 93005; 93656; 93657; Q9967

== ENCOUNTER → 2025-08-24 11:54 | Outpatient (REF) | payer OTHER, SELFPAY | LOC: RAD 11:54 | PROVIDERS: ATTENDING PHYSICIAN Internal Medicine | DX: G89.29 Other chronic pain (principal); M54.51 Vertebrogenic low back pain; M54.42 Lumbago with sciatica, left side | CPT/HCPCS: 72110 ==